=== PATIENT | female | born 2000 | race Caucasian/White ===

== ENCOUNTER 2022-08-09 12:44 | Emergency (ER) | payer MEDICAID, SELFPAY ==
[2022-08-09 12:59] VITALS: BP 140/84; PULSE 82; RESP 16; TEMP 37.6; O2SAT 100; BMI 19.5
--- NOTE | 2022-08-09 13:15 | ED.NURSE ---
Patient had large green emesis. MD notified. Order for fluids and zofran.
--- OUTSIDE RECORDS SUMMARY | 2022-08-09 13:24 | XMS_ITS ---
:2000 Author Organization [facility] Address 2024 [facility] [address] [place], [place] [id number] Care Team Providers Name Role Phone karunaMibenitaation, Provider Unavailable Unavailable PROBLEMS Type Condition ICD9-CM Code [id number] Onset Condition SNOMED Code Code Dates Status Problem Claustrophobia F40.240 Active 002 Problem LORRAINE (generalized F41.1 Active 218 81399 anxiety disorder) ALLERGIES Substance Reaction Event Type Date Status Sodium Lauryl Sulfate bad mouth sores Drug Allergy Nov, Act macarena ENCOUNTERS Encounter Location Date Diagnosis [facility] [address] [place] Jun, [place], [place] [id number] [facility] 2024 [facility] Nov, LORRAINE (generalized anxiety [address] [place], [place] disorder) F41.1 [id number] [facility] [address] [place] Jun, [place], [place] [id number] [facility] [address] [place] March, [place], [place] [id number] [facility] [address] [place] Feb, LORRAINE (g eneralized anxiety [place], [place] disorder) F41. 1 [id number] [facility] [address] [place] Feb, [place], [place] [id number] [facility] [address] [place] Feb, LORRAINE (g eneralized anxiety [place], [place] disorder) F41. 1 [id number] [facility] [address] [place] Feb, LORRAINE (g eneralized anxiety [place], [place] disorder) F41. 1 [id number] [facility] [address] [place] Nov, Claust rophobia F40.240 and [place], [place] LORRAINE (generaliz ed anxiety [id number] disorder) F41.1 IMMUNIZATIONS No Known Immunizations SOCIAL HISTORY Qualifiers Date Never Smoker REASON FOR REFERRAL FUNCTIONAL STATUS PLAN OF CARE VITAL SIGNS Height 65.25 in 2019-12-07 Weight 130.4 lbs 2019-12-07 BMI 21.53 kg/m2 2019-12-07 Temperature 98.2 degrees Fahrenheit 2019-12-07 Blood pressure systolic 110 mm Hg 2019-12-07 Blood pressure diastolic 54 mm Hg 2019-12-07 MEDICATIONS Medication Instructions Dosage Frequency Start End Duration Statu s Date Date Valium 2 MG orally once 1 tab(s) Nov, Not-Emiliano in before MRI 2019 g busPIRone HCl 5 orally 2 times a 1.5 tabs 12h Nov, day (s) Active MG day 2019 Escitalopram orally once a 1 tab(s) 24h Feb, 30 day(s) Ac tive Oxalate 5 MG day 2019 PROCEDURES No Known procedures RESULTS No Results REASON FOR VISIT [facility] Follow up, [facility] Conversion Encounter, Registry, Mailbox is full 04/19 chlamydiascreen, change of pharmacy , Registry, med check, wanting to increase medication, Refill -FYI, Followup - medication, New Patient - needs Rx for MRI Friday Insurance Providers [facility] Health Member Patient Patient Patient Patient Patient Subscriber Subscriber Subscriber Group Insurance Plan Plan Plan Plan ID Relationship Address Phone Name Date of ID Name Date of No Type Insurance Insurance Insurance Coverage to Subscriber Address Phone Name Dates BLUE [phone] BLUE self Cathryn [id number] [place] [address] [address] [address] [place] [id number]
--- OUTSIDE RECORDS SUMMARY | 2022-08-09 13:24 | XMS_ITS ---
:2001 Author Organization [facility] Address 2024 [facility] [address] [place], [place] [id number] Care Team Providers Name Role Phone karunaMibenitaation, Provider Unavailable Unavailable PROBLEMS Type Condition ICD9-CM Code [id number] Onset Condition SNOMED Code Code Dates Status Problem Claustrophobia F40.240 Active 002 Problem LORRAINE (generalized F41.1 Active 218 88426 anxiety disorder) ALLERGIES Substance Reaction Event Type Date Status Sodium Lauryl Sulfate bad mouth sores Drug Allergy Nov, Act macarena ENCOUNTERS Encounter Location Date Diagnosis [facility] [address] [place] Jun, [place], [place] [phone] [facility] 2024 [facility] Nov, LORRAINE (generalized anxiety [address] [place], [place] disorder) F41.1 [id number] [facility] [address] [place] Jun, [place], [place] [id number] [facility] [address] [place] March, [place], [place] [id number] [facility] [address] [place] Feb, LORRAINE (g eneralized anxiety [place], [place] disorder) F41. 1 [id number] [facility] [address] [place] Feb, [place], [place] [id number] [facility] [address] [place] Feb, LORRAINE (g eneralized anxiety [place], [place] disorder) F41. 1 [id number] [facility] [address] [place] Feb, LORRAINE (g eneralized anxiety [place], [place] disorder) F41. 1 [id number] [facility] [address] [place] Nov, Claust rophobia F40.240 and [place] LORRAINE (generaliz ed anxiety [id number] disorder) F41.1 IMMUNIZATIONS No Known Immunizations SOCIAL [...] procedures RESULTS No Results REASON FOR VISIT [facility] Follow [facility], Registry, Mailbox is full 04/19 chlamydiascreen, change of pharmacy , Registry, med check, wanting to increase medication, Refill -FYI, Followup - medication, New Patient - needs Rx for MRI Friday Insurance Providers [facility] Health Member Patient Patient Patient Patient Patient Subscriber Subscriber Subscriber Group Insurance Plan Plan Plan Plan ID Relationship Address Phone Name Date of ID Name Date of No Type Insurance Insurance Insurance Coverage to Subscriber Address Phone Name Dates BLUE [phone] BLUE self Cathryn [id number] [place] [address] [address] [address] [place] [phone]
--- OUTSIDE RECORDS SUMMARY | 2022-08-09 13:24 | XMS_ITS ---
:2001 Author Organization [facility] Address [address] [facility] [address] [place], [place] [id number] Care Team Providers Name Role Phone karunaMibenitaation, Provider Unavailable Unavailable PROBLEMS Type Condition ICD9-CM Code [id number] Onset Condition SNOMED Code Code Dates Status Problem Claustrophobia F40.240 Active 002 Problem LORRAINE (generalized F41.1 Active 218 52767 anxiety disorder) ALLERGIES Substance Reaction Event Type Date Status Sodium Lauryl Sulfate bad mouth sores Drug Allergy Nov, Act macarena ENCOUNTERS Encounter Location Date Diagnosis [facility] [address] [place] Jun, [place], [place] [id number] [facility] 2024 [facility] Nov, LORRAINE (generalized anxiety [address] [place], [place] disorder) F41.1 [id number] [facility] [address] [place] Jun, [place], [place] [id number] [facility] [address] [place] March, [place], [place] [id number] [facility] [address] [place] Feb, LORRAINE (g eneralized anxiety [place], [place] disorder) F41. 1 [id number] [facility] [address] [place] Feb, [place], [place] [id number] [facility] [address] [place] Feb, LORRAINE (g eneralized anxiety [place], [place] disorder) F41. 1 [id number] [facility] [address] [place] Feb, LORRAINE (g eneralized anxiety [place], [place] disorder) F41. 1 [id number] [facility] [address] [place] Nov, Claust rophobia F40.240 and [place], [place] LORRAINE (generaliz ed anxiety [id number] disorder) F41.1 IMMUNIZATIONS No Known Immunizations SOCIAL [...] procedures RESULTS No Results REASON FOR VISIT [facility] Follow up, [facility] Conversion Encounter, Registry, Mailbox is full 04/19 chlamydiascreen, change of pharmacy , Registry, med check, wanting to increase medication, Refill -FYI, Followup - medication, New Patient - needs Rx for MRI Friday Insurance Providers [facility] Health Member Patient Patient Patient Patient Patient Subscriber Subscriber Subscriber Group Insurance Plan Plan Plan Plan ID Relationship Address Phone Name Date of ID Name Date of No Type Insurance Insurance Insurance Coverage to Subscriber Address Phone Name Dates BLUE [phone] BLUE self Cathryn [id number] [place] [address] [address] [place] [phone]
--- NOTE | 2022-08-09 13:31 | ED_ITS ---
HPI - General Adult General Chief complaint: Abdominal Pain Stated complaint: poss miscarriage Time Seen by Provider: 08/09/22 12:45 Source: patient Mode of arrival: ambulatory Limitations: no limitations History of Present Illness HPI narrative: 21-year-old female coming in today with nausea and vomiting. Patient states that she is undergoing opioid withdrawal. States that she last used opioids about 50 hours ago. She has been crushing pills and smoking them. She states that she was seen at [facility] and prescribed Suboxone, today is her 2nd day. However she feels very nauseated and she went to see her primary care provider who recommended she come to the ER for IV fluids and medication. Patient is also concerned because she did not get her period this month she states that she took a home test a few days ago and was positive however more recent 1 yesterday was negative. She still has not gotten her. She is about 1 week late and she is not quite sure whether she is or not. She is sexually active. She feels jittery, nauseated, achy from head to toe, anxious. She denies blurry vision or changes in her hearing. No focal neurologic deficits. No fevers. Related Data Home Medications Medication Instructions Recorded Confirmed buprenorphine 4 mg-naloxone 1 mg 1 film sublingual QID 08/09/22 08/09/22 sublingual film (Suboxone) clonazepam 1 mg tablet 1 mg PO DAILY 08/09/22 08/09/22 trazodone 50 mg tablet 50 mg PO DAILY 08/09/22 08/09/22 Previous Rx's Medication Instructions Recorded ondansetron 4 mg disintegrating 4 mg PO TID PRN nausea and 08/09/22 tablet vomiting #15 tabs potassium chloride 10 mEq 10 meq PO BID 3 days #6 caps 08/09/22 capsule,extended release Allergies Allergy/AdvReac Type Severity Reaction Status Date / Time fluoxetine Allergy Unknown Verified 08/09/22 13:08 Review of Systems Status of ROS: Reports: 10 or more systems reviewed and unremarkable except as noted in History and below PFSH PFS Social History Smoking Status: Unknown if ever smoked Do you use any of these nicotine containing products: E-Cigarettes Second hand tobacco smoke exposure: Yes How often do you have a drink containing alcohol: 4 or more times a week How many standard drinks containing alcohol do you have on a typical day: 7 to 9 How often do you have six or more drinks on one occasion: Daily or almost daily AUDIT-C Alcohol total score: 11 Non-prescribed substance use: marijuana (any form) and opiods/painkillers service: No Exam Narrative: Exam Narrative: Well-nourished well-developed patient appears uncomfortable and anxious. Alert and oriented x3. Answers questions appropriately. Is cooperative. Patient speaks in full sentences without needing to catch her breath. HEENT: Normocephalic atraumatic. Pupils are equally round reactive to light. Extraocular muscles are intact. Conjunctivae are moist without any icterus noted. Moist mucous membranes. Cardiovascular: Heart is regular rate and rhythm S1 and S2 are present without any murmurs. Lungs: Clear to auscultation bilaterally no wheezes rhonchi or rales are appreciated. Patient takes deep breaths without any discomfort. Abdomen: Soft and nontender nondistended with normal bowel sounds. Skin: Well perfused. Const: Vital Signs, click to edit/add: Vital Signs - 24 hr 08/09/22 12:59 08/09/22 14:26 08/09/22 14:30 Temperature 99.7 F H 99.0 F Pulse Rate [Pulse Oximeter] 82 61 72 Respiratory Rate 16 16 16 Blood Pressure [Le ft Upper Arm] 140/84 H 133/82 124/86 Pulse Oximetry 100 99 99 Oxygen Delivery Me thod Room Air Room Air Room Air 08/09/22 15:00 08/09/22 15:30 Temperature Pulse Rate [Pulse Oximeter] Respiratory Rate Blood Pressure [Le ft Upper Arm] 124/98 H 125/76 Pulse Oximetry Oxygen Delivery Me thod Room Air Room Air Course Course Hospital Course: IV was started patient received a L of normal saline and IV Zofran. Just prior to starting the IV she did have an episode of emesis. She was having burning discomfort in her abdomen and requested a GI cocktail which was given and her symptoms did resolve. She received another L of normal saline for a total of 2 L and another dose of Zofran. She also requested muscle relaxer for achiness and sore muscles, Flexeril 10 mg p.o. was given. Labs showed hypokalemia-IV potassium was given during her stay. She took another dose of Suboxone in the afternoon, 4 mg sublingual. She stated that her cravings are very well controlled. Vital Signs Vital signs: Initial Vital Signs Temperature 99.7 F H 08/09/22 12:59 Temperature Source Temporal Artery Scan 08/09/22 12:59 Pulse Rate 82 08/09/22 12:59 Pulse Rhythm 08/09/22 12:59 Pulse Strength 3+ Normal 08/09/22 12:59 Respiratory Rate 16 08/09/22 12:59 Blood Pressure 140/84 H 08/09/22 12:59 Blood Pressure Mean 102 08/09/22 12:59 Blood Pressure Position Supine 08/09/22 12:59 Pulse Oximetry 100 08/09/22 12:59 Oxygen Delivery Method 08/09/22 12:59 Vital Signs Temperature 99.7 F H 08/09/22 12:59 Pulse Rate 82 08/09/22 12:59 Respiratory Rate 16 08/09/22 12:59 Blood Pressure 140/84 H 08/09/22 12:59 Pulse Oximetry 100 08/09/22 12:59 Oxygen Delivery Method 08/09/22 12:59 Temperature 99.0 F 08/09/22 14:26 Pulse Rate 72 08/09/22 14:30 Respiratory Rate 16 08/09/22 14:30 Blood Pressure 125/76 08/09/22 15:30 Pulse Oximetry 99 08/09/22 14:30 Oxygen Delivery Method 08/09/22 15:30 Medical Decision Making MDM Narrative Medical decision making narrative: 21-year-old female in opioid withdrawal on day 2 of Suboxone. test negative. Patient's menses is about 5 days late. Patient will be discharged home with [facility]. Continue Suboxone as prescribed. We will also send her home with 3 days of oral potassium replacement. Follow-up as scheduled. Lab Data Lab results reviewed: Yes I reviewed the patient's lab results Labs: Lab Results 08/09/22 08/09/22 08/09/22 Range/Units 13:57 14:50 14:50 WBC 13.21 H (4.50-11.00) K/uL RBC 5.19 (4.00-5.20) m/uL Hgb 15.2 (12.0-16.0) gm/dL Hct 44.1 (33.0-51.0) % MCV 85 (80-100) fL MCH 29 (26-34) pg MCHC 35 (32-36) gm/dL RDW Coeff of Allan 12.0 (11.5-15.5) % Plt Count 384 (140-440) K/uL Neut % (Auto) 86.4 H (42.0-72.0) % Lymph % (Auto) 7.8 L (20-44) % [place] % (Auto) 5.5 (0.0-11.0) % Eos % (Auto) 0.0 (0.0-7.0) % Baso % (Auto) 0.2 (0.0-3.0) % Neut # (Auto) 11.40 H (1.7-7.0) K/uL Lymph # (Auto) 1.00 (0.90-2.90) K/uL [place] # (Auto) 0.70 (0.00-0.90) K/UL Eos # (Auto) 0.00 (0.00-0.50) K/uL Baso # (Auto) 0.00 (0.00-0.30) K/uL Abs Immat Gran (auto) 0.01 (0.00-0.30) K/uL Sodium 139 (135-149) mmol/L Potassium 3.0 L (3.6-5.1) mmol/L Chloride 97 (96-114) mmol/L Carbon Dioxide 24 (20-32) mmol/L BUN 10 (5-24) mg/dL Creatinine 0.6 (0.5-1.5) mg/dL Estimated Creat Clear 129.59 Estimated GFR 132 ml/min Glucose 117 H (60-115) mg/dL Calcium 10.5 (8.4-10.6) mg/dL Magnesium 1.8 (1.5-2.6) mg/dL Total Bilirubin 0.6 (0.1-1.5) mg/dL Direct Bilirubin 0.2 (0.0-0.5) mg/dL AST 20 (12-35) U/L ALT 14 (4-35) U/L Alkaline Phosphatase 97 (40-150) U/L Total Protein 9.3 H (6.0-8.3) g/dL Albumin 5.6 H (3.3-5.0) g/dL Lipase 167 (23-300) U/L HCG, Qual Negative (Negative) Discharge Plan Discharge Clinical Impression: Opioid withdrawal, Hypokalemia Patient Disposition: Home, Self-Care Condition: Improved Additional Instructions: Follow-up as scheduled. Take Zofran as needed for nausea and vomiting. Recommend replacing your potassium twice a day for the next 3 days. Prescriptions: New ondansetron 4 mg tablet,disintegrating 4 mg PO TID PRN (Reason: nausea and vomiting) Qty: 15 0RF potassium chloride 10 mEq capsule, extended release 10 meq PO BID 3 Days Qty: 6 0RF No Action buprenorphine-naloxone [Suboxone] 4-1 mg film 1 film sublingual QID Label Comments: TAKE 1/2 TO 1 FILM FOUR TIMES DAILY FOR DAY 1 THEN 1 TO 2 FILMS TWICE DAILY DAY 2-4 trazodone 50 mg tablet 50 mg PO DAILY clonazepam 1 mg tablet 1 mg PO DAILY Follow Up/Referrals: Emiliano Zuniga PA-C [Primary Care Provider] - [facility]
[2022-08-09] MEDS: 0.9 % SODIUM CHLORIDE 1000 ml 1,000 ML IV ×2 (13:32→14:33)
[2022-08-09] MEDS: ONDANSETRON 2 MG/ML inj 4 MG IVP ×2 (13:32→14:43)
--- NOTE | 2022-08-09 13:42 | ED.NURSE ---
Patient requesting something for her acidic stomach MD notified. Patient stated [facility] so [facility] than [facility]. I went there by ambulance this morning and it was going to be a 5 hour wait so i left and came here.
[2022-08-09] MEDS: SUCRALFATE 1 GM TABLET PO (13:54)
[2022-08-09 14:02] LABS: HCG Qualitative* Negative (Negative)
--- NOTE | 2022-08-09 14:02 | ED.NURSE ---
requested Juice and crackers. Okay by Dr. Cohen to allow patient to have this.
--- NOTE | 2022-08-09 14:25 | ED.NURSE ---
Patient asking if she can have a film of subboxone. Okay per Dr. Cohen to have 1 4mg film of her own medication. Patient took this.
[2022-08-09 14:26] VITALS: BP 133/82; PULSE 61; RESP 16; TEMP 37.2; O2SAT 99
[2022-08-09 14:30] VITALS: BP 124/86; PULSE 72; RESP 16; O2SAT 99
[2022-08-09] MEDS: GI COCKTAIL (VISC LIDO/ANTACID) 30 ML PO (14:43)
[2022-08-09 14:57] LABS: Basophils Percent Auto 0.2 % (0.0-3.0); Hematocrit 44.1 % (33.0-51.0); Hemoglobin* 15.2 gm/dL (12.0-16.0); Immature Granulocytes Abs Auto 0.01 K/uL (0.00-0.30); Lymphocytes Percent Auto 7.8 % (20-44); Mean Corpuscular HGB Conc 35 gm/dL (32-36); Mean Corpuscular Hemoglobin 29 pg (26-34); Mean Corpuscular Volume 85 fL (80-100); Monocytes Percent Auto 5.5 % (0.0-11.0); Neutrophils Percent Auto 86.4 % (42.0-72.0); Platelet Count* 384 K/uL (140-440); Red Blood Count 5.19 m/uL (4.00-5.20); White Blood Count* 13.21 K/uL (4.50-11.00)
[2022-08-09 15:00] VITALS: BP 124/98
[2022-08-09 15:06] LABS: Slide Review Reflex No
[2022-08-09 15:11] LABS: Albumin* 5.6 g/dL (3.3-5.0)
[2022-08-09 15:12] LABS: Chloride* 97 mmol/L (96-114); Sodium* 139 mmol/L (135-149)
[2022-08-09 15:14] LABS: Aspartate Amino Transferase* 20 U/L (12-35); Bilirubin Direct* 0.2 mg/dL (0.0-0.5); Bilirubin Total* 0.6 mg/dL (0.1-1.5); Carbon Dioxide* 24 mmol/L (20-32); Creatinine* 0.6 mg/dL (0.5-1.5); Est. Creatinine Clearance* 129.59; Estimated Glomerular Filt Rate 132 ml/min; Total Protein* 9.3 g/dL (6.0-8.3)
[2022-08-09 15:15] LABS: Alanine Aminotransferase* 14 U/L (4-35); Alkaline Phosphatase* 97 U/L (40-150); Blood Urea Nitrogen* 10 mg/dL (5-24); Calcium* 10.5 mg/dL (8.4-10.6); Glucose* 117 mg/dL (60-115); Lipase* 167 U/L (23-300)
[2022-08-09 15:30] VITALS: BP 125/76
[2022-08-09 15:39] LABS: Magnesium* 1.8 mg/dL (1.5-2.6)
[2022-08-09] MEDS: POTASSIUM CHLORIDE 10 MEQ/100 ML PIGGYBACK 100 MEQ IVPB (15:47)
--- NOTE | 2022-08-09 15:55 | ED.NURSE ---
Pt c/o hip pain and requesting trazadone and muscle relaxant. MD informed. MD encourages pt to take home trazadone medication once home upon d/c. Cyclobenzaprine administered, per eMAR.
[2022-08-09] MEDS: CYCLOBENZAPRINE HCL 10 MG TABLET PO (15:58)
--- NOTE | 2022-08-09 16:10 | ED.NURSE ---
Pt requesting more apple and orange juice. Previously okayed with . Brought to pt. Pt c/o burning from orange juice and requesting GI cocktail. informed and declines d/t pt already receiving dose of GI cocktail earlier today at [facility] and one here in ER. Pt updated. Pt stating IV potassium infusion stinging. Switched to NS piggyback and potassium temporarily paused. Pt states stinging sensation improving. Potassium restarted over two hours and pt urged to press call light if stinging returns.
[2022-08-09 17:46] VITALS: BP 128/76; PULSE 66; RESP 18; TEMP 37.1; O2SAT 99
--- NOTE | 2022-08-09 18:07 | ED.NURSE ---
Pt d/c to home with a ride from her sister.
== END 2022-08-09 18:08 | disposition home or self-care (01) ==
PROVIDERS: Emergency Provider Family Medicine; PCP Physician Assistant Medical
DX: E87.6 Hypokalemia (principal); F11.23 Opioid dependence with withdrawal
CPT/HCPCS: 36415; 80048; 80076; 83690; 83735; 84703; 85025; 96365; 96375; 96376; 99284; 99285; A9270; J2405; J3480; J7030

== ENCOUNTER 2025-02-07 15:39 | Outpatient (CLI) | payer MEDICAID, SELFPAY ==
[2025-02-08 00:05] LABS: Chlamydia DNA Amplified* NOT DETECTED (No Detected); GC DNA Amplified* NOT DETECTED (No Detected)
== END 2025-02-07 15:40 | disposition home or self-care (01) ==
LOC: LKVREF 15:41
PROVIDERS: Visit Provider Nurse Practitioner Family
DX: N89.8 Other specified noninflammatory disorders of vagina (principal); R30.0 Dysuria; Z11.3 Encounter for screening for infections with a predominantly sexual mode of transmission
CPT/HCPCS: 87086; 87491; 87591

== ENCOUNTER 2025-06-03 14:57 | Emergency (ER) | payer MEDICAID, SELFPAY ==
--- OUTSIDE RECORDS SUMMARY | 2022-09-10 08:01 | XMS_ITS | Continuity of Care Document ---
Author Organization [facility] Address [address] [address] [place] [address] Phone Care Team Providers Care Biometrics Technician Name Role Phone Cole Weber CRNA Unavailable Unavailable Allergies, Adverse Reactions, Alerts Substance Reaction Status Criticality No Known Allergies Resolved No Inform ation Medications Medication Instructions Dosage Effective Dates (start - stop) Status Comments ondansetron HCl 4 mg tablet take 1 Tablet by ORAL route every 8 hours as needed for nausea for Agitation 4 MG - Active Procedures Procedure Date Ugi Endo; W/bx 1/mx Level Iv-surg Path Gross/micro Advance Directives Directive Yes / No Effective Date File Name No Information Encounters Encounter Description Practice Location Reason(s) For Visit Diagnoses Date Provider Providers Copied on Encounter [facility], [address] [address], [place], [place], [id number], [place] tel:[phone] [facility] No Information 2 Gus Galvan. [address], [facility] [address], [place], [place], [address], [place]. tel:[phone] [facility], [address] [address], [place], [place], [address], [place] tel:[phone] [facility] GI Symptoms or Concerns (chief complaint) Esophageal dysphagiaDys phagia, unspecifiedD ysphagia, unspecified 2 No Information Referring Provider: Merari Castellon, [address] [place], [address]. tel:[phone] [facility], [address] [address], [place], [place], [address], [place] tel:[phone] [facility] No Information Aram Negrete. [address], [place], [place], [address], [place]. tel:[phone] Family History Family Member Type Diagnosis Age At Onset No Information Immunizations Vaccine Date Status Comments SARS-COV-2 (COVID-19) vaccin e, mRNA, spike protein, LNP, preservative free, 100 mcg/0.5mL dose or 50 mcg/0.25mL dose administered Note: [facility] bi -directional interface ; Source: Other Registry SARS-COV-2 (COVID-19) vaccin e, mRNA, spike protein, LNP, preservative free, 100 mcg/0.5mL dose or 50 mcg/0.25mL dose administered Note: [facility] bi -directional interface ; Source: Other Registry tetanus toxoid, reduced diphtheria toxoid, and acellular pertussis vaccine, adsorbed administered Note: [facility] b i-directional interface ; Source: Other Registry Human Papillomavirus 9-afsaneh t vaccine administered Note: [facility] bi-direct ional interface ; Source: Other Registry Human Papillomavirus 9-afsaneh t vaccine administered Note: [facility] bi-direct ional interface ; Source: Other Registry Human Papillomavirus 9-afsaneh t vaccine administered Note: [facility] bi-direct ional interface ; Source: Other Registry tetanus toxoid, reduced diphtheria toxoid, and acellular pertussis vaccine, adsorbed administered Note: [facility] b i-directional interface ; Source: Other Registry Havrix pediatric administered Note: [facility] bi-directional interface ; Source: Other Registry meningococcal oligosaccharid e (groups A, C, Y and W-135) diphtheria toxoid conjugate vaccine (MCV4O) administered Note: [facility] bi-direct ional interface ; Source: Other Registry varicella virus vaccine administered Note : [facility] bi-directional interface ; Source: Other Registry measles, mumps and rubella v irus vaccine administered Note: [facility] bi-direct ional interface ; Source: Other Registry diphtheria, tetanus toxoids and acellular pertussis vaccine administered Note: [facility] b i-directional interface ; Source: Other Registry influenza virus vaccine, unspecified formulation administered Note: [facility] bi-di rectional interface ; Source: Other Registry measles, mumps and rubella v irus vaccine administered Note: [facility] bi-direct ional interface ; Source: Other Registry diphtheria, tetanus toxoids and acellular pertussis vaccine administered Note: [facility] b i-directional interface ; Source: Other Registry varicella virus vaccine administered Note : [facility] bi-directional interface ; Source: Other Registry poliovirus vaccine, inactivated administe red Note: [facility] bi- directional interface ; Source: Other Registry Haemophilus influenzae type b conjugate and Hepatitis B vaccine administered Note: [facility] bi- directional interface ; Source: Other Registry Influenza, seasonal, injectable administe red Note: [facility] bi- directional interface ; Source: Other Registry Haemophilus influenzae type b conjugate and Hepatitis B vaccine administered Note: [facility] bi- directional interface ; Source: Other Registry poliovirus vaccine, inactivated administe red Note: [facility] bi- directional interface ; Source: Other Registry diphtheria, tetanus toxoids and acellular pertussis vaccine administered Note: [facility] b i-directional interface ; Source: Other Registry Pneumovax administered Note: [facility] bi-d irectional interface ; Source: Other Registry Haemophilus influenzae type b conjugate and Hepatitis B vaccine administered Note: [facility] bi- directional interface ; Source: Other Registry poliovirus vaccine, inactivated administe red Note: [facility] bi- directional interface ; Source: Other Registry diphtheria, tetanus toxoids and acellular pertussis vaccine administered Note: [facility] b i-directional interface ; Source: Other Registry Pneumovax administered Note: [facility] bi-d irectional interface ; Source: Other Registry Payers Payer name Insurance type Covered republican ID Authorzhenenid paz(s) Home MURGUIA [id number] Social History Type Description Quantity Date Captured Comments Sex Female Smoking Status No Information Chief Complaint And Reason For Visit No Information Reason For Referral Reason For Referral No Information History Of Present Illness Encounter Date Complaint History Of Prese nt Illness GI Symptoms or Concerns Functional Status Date Functional Assessmen t No Information Instructions Date Instruction Additional Infor mation No Information Assessments Type Assessment Date No Information Patient Care Teams Name Effective Dates (start - stop) Status Members No Information
--- OUTSIDE RECORDS SUMMARY | 2022-09-10 08:01 | XMS_ITS | Continuity of Care Document ---
Author Organization [facility] Address [address] [address] [place] [address] Phone Care Team Providers Care Contract Sheltered Workshop Supervisor Name Role Phone Cole Weber CRNA Unavailable [...] Diagnoses Date Provider Providers Copied on Encounter [facility], [address] [address], [place], [place], [id number], [place] tel:[phone] [facility] No Information 2 Gus Galvan. [address] [facility], [facility] [address], [place], [place], [id number], [place]. tel:[phone] [facility], [address] [address], [place], [place], [id number], [place] tel:[phone] [facility] GI Symptoms or Concerns (chief complaint) Esophageal dysphagiaDys phagia, unspecifiedD ysphagia, unspecified 2 No Information Referring Provider: Merari Castellon, [address] [place], [address]. tel:[phone] [facility], [address] [address], [place], [place], [address], [place] tel:[phone] [facility] No Information Aram Negrete. [address] [facility], [address], [place], [place], [id number], [place]. tel:[phone] Family History Family Member Type Diagnosis Age [...] Covered republican ID Authorzhenenid paz(s) Home MURGUIA [id number] Social History Type Description Quantity Date Captured [...]
--- OUTSIDE RECORDS SUMMARY | 2025-06-03 14:48 | XMS_ITS | Encounter Summary ---
Author Organization [place] Address [address] [place] [address] Care Team Providers Care Applique Cutter Name Role Phone No Ref-Primary, Physician Primary Care Provider Encounter Details Date Type Department Care Team ([facility] st Contact Info) Description 06/03/2025 2:48 PM CDT - 06/03/2025 2:53 PM CDT Emergency [facility] Emergency Dept [address] [place] [address] Discharge Disposition: Left Without Being Seen Social History Tobacco Use Types Packs/Day Years Used Date Smoking Tobacco: Every Day Cigarettes Vaping Device Smokeless Tobacco: Never Adolescent Education Answer Date Record ed Getting School Help Needed Not on file 08/09 Comments No Sex and Gender Information Value Date Recorded Sex Assigned at Not on file Legal Sex Female 10:35 AM CDT Gender Identity Not on file Sexual Orientation Not on file documented as of this encounter Medications at Time of Discharge baclofen (LIORESAL) 10 MG tablet Take 10 mg by mouth 3 times daily as needed 01/03/2023 buprenorphine (SUBUTEX) [address] tablet [address] 2 TABLETS UNDER THE TONGUE TWICE DAILY 01/03/2023 gabapentin (NEURONTIN) 300 MG capsule TAKE 1 CAPSULE BY MOUTH THREE TIMES DAILY NEEDED FOR ANXIETY 01/03/2023 mirtazapine (REMERON) 15 MG tablet Take 15 mg by mouth At Bedtime 01/03/2023 documented as of this encounter ED Notes * Nely De Leon RN - 06/03/2025 2:47 PM CDT Patient called x 3 for triage. [facility] documented in this encounter Plan of Treatment Not on file documented as of this encounter Visit Diagnoses Not on filedocumented in this encounter Care Teams Applique Cutter Relationship Specialty Start Date End Date No Ref-Primary, Physician PCP - General 01/09/23 documented as of this encounter
--- OUTSIDE RECORDS SUMMARY | 2025-06-03 14:59 | XMS_ITS | Clinical Summary ---
Author Organization [place] Address [address] [place] [address] Care Team Providers Care Pilot Teacher Name Role Phone No Ref-Primary, Physician Primary Care Provider Allergies Active Allergy Reactions Criticality Noted Date Comments Fluoxetine Other (See Comments) 06/10/2022 Mouth sores Sodium Lauryl Sulfate Anaphylaxis High 11/02/2019 Mouth ulcers Medications mirtazapine (REMERON) 15 MG tablet Take 15 mg by mouth At Bedtime 01/03/2023 Active gabapentin (NEURONTIN) 300 MG capsule TAKE 1 CAPSULE BY MOUTH THREE TIMES DAILY NEEDED FOR ANXIETY 01/03/2023 Active baclofen (LIORESAL) 10 MG tablet Take 10 mg by mouth 3 times daily as needed 01/03/2023 Active buprenorphine (SUBUTEX) 2 MG SUBL sublingual tablet PLACE 2 TABLETS UNDER THE TONGUE TWICE DAILY 01/03/2023 Active Active Problems Problem Noted Date Diagnosed Date Hyperopia, bilateral 01/30/2023 Visual disturbance 01/30/2023 Anisometropia 09/20/2021 Hyperopic astigmatism of left eye 09/20/2021 Refractive amblyopia of left eye 09/20/2021 Chronic midline thoracic back pain 05/19/2021 Generalized anxiety disorder 02/22/2021 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 02/22/2021 Panic attacks 02/22/2021 Polyarthralgia 02/22/2021 Encounters Date Type Department Care Team Description 06/03/2025 2:48 PM CDT - 06/03/2025 2:53 PM CDT Emergency [facility] Emergency Dept [address] [place] [address] Discharge Disposition: Left Without Being Seen 06/03/2025 Travel 05/11/2025 Refill [facility] [address] [place] [address] Miliva Horvath PA-C Medication Refill from Last 3 Months Social History Tobacco Use Types Packs/Day Years Used Date Smoking Tobacco: Every Day Cigarettes Vaping Device Smokeless Tobacco: Never Tobacco Cessation:Ready to Q uit: Not Asked; Counseling Given: Not Answered Adolescent Education Answer Date Record ed Getting School Help Needed Not on file 08/09 Comments No Sex and Gender Information Value Date Recorded Sex Assigned at Not on file Legal Sex Female 10:35 AM CDT Gender Identity Not on file Sexual Orientation Not on file Last Filed Vital Signs Vital Sign Reading Time Taken Comments Blood Pressure 131/92 03/01/2025 11:07 AM CDT Pulse 92 03/01/2025 11:07 AM CDT Temperature 36.4 C (97.5 F) 03/01/2025 11:04 AM CDT Respiratory Rate 16 03/01/2025 11:04 AM CDT Oxygen Saturation 100% 03/01/2025 11:07 AM CDT Inhaled Oxygen Concentration - - Weight 64.9 kg (143 lb) 03/01/2025 11:04 AM CDT Height 167.6 cm (5' 6) 11/02/2019 5:56 PM PUBLIC HEALTH SERVICE OFFICER Body Mass Index 23.08 11/02/2019 5:56 PM PUBLIC HEALTH SERVICE OFFICER Plan of Treatment Health Maintenance Due Date Last Done Comments ADVANCE CARE PLANNING 2001 ANNUAL REVIEW OF HM ORDERS 2001 DEPRESSION ACTION PLAN 2001 NICOTINE/TOBACCO CESSATION COUNSELING Q 1 YR 2001 PHQ-9 2001 PNEUMOCOCCAL VACCINE: PEDIATRICS (0 to 5 YEARS) AND AT-RISK PATIENTS (6 to 49 YEARS) (1 of 1 - PPSV23) 2007 04/22/2003, 02/05/2002, 2001 MENINGITIS B VACCINE (1 of 2 - Standard) 2017 COVID-19 VACCINE ( - season) 2024 09/14/2021, 08/17/2021 INFLUENZA VACCINE (#1) 2025 , 10/12/2023, 09/30/2022, Additional history exists YEARLY PREVENTIVE VISIT 01/06/2026 01/06/20, 01/15/2023, 02/22/2021 PAP 01/15/2026 01/15/2023 CHLAMYDIA SCREENING 04/14/2026 04/14/2025, 02/28/2025, 03/18/2023, Additional history exists DTAP/TDAP/TD VACCINE (8 - Td or Tdap) 02/22/2031 02/22/2021, 07/25/2014, 06/30/2006, Additional history exists ZOSTER VACCINE (1 of 2) 2051 MENINGITIS VACCINE Aged Out 07/25/2014 No longer eligible based on patient's age to complete this topic HPV VACCINE Completed 02/22/2021, 09/17, 07/03/2017 HEPATITIS B VACCINE Completed 04/15/2023, 10/26/2002, 02/05/2002, Additional history exists HEPATITIS C SCREENING Completed 05/23/2023 HIV SCREENING Completed 01/06/2024 Procedures Procedure Name Priority Date/Time Associated Diagnosis Comments CHLAMYDIA TRACHOMATIS PCR Routine 01/09/2023 6:16 PM PUBLIC HEALTH SERVICE OFFICER Screen for STD (sexually transmitted disease) from Last 3 Months or Most Recently Relevant to Health Maintenance Results * Chlamydia trachomatis PCR - Clinic Collect (01/09/2023 6:16 PM PUBLIC HEALTH SERVICE OFFICER) Chlamydia trachomatis Negative Negative 01/11/2023 11:29 AM PUBLIC HEALTH SERVICE OFFICER [facility] Comment:A negative result by community health representative mediated amplification does not preclude the presence of C. trachomatis infection because results are dependent on proper and adequate collection, absence of inhibitors and sufficient rRNA to be detected. Urine VOIDED URINE SPECIMEN / Unknown Non-blood Collection / Unknown 01/09/2023 6:16 PM PUBLIC HEALTH SERVICE OFFICER 01/09/2023 6:28 PM PUBLIC HEALTH SERVICE OFFICER us Catherine Garzon PA-C LAB - MICRO GENERAL ORDERABLES Final Result [facility] Inf. Diseases Diag. Lab [address] [facility], [address] [place] [address], [facility] [phone] from Last 3 Months or Most Recently Relevant to Health Maintenance [place] [address] [place] [address] Care Teams Pilot Teacher Relationship Specialty Start Date End Date No Ref-Primary, Physician PCP - General 01/09/23
--- OUTSIDE RECORDS SUMMARY | 2025-06-03 14:59 | XMS_ITS | Clinical Summary ---
Author Organization [facility] Address [address], [place] [address] Care Team Providers Care Route Returner Name Role Phone No Primary/Referring, Kjy Primary Care Provider Unavailable Source Comments You are receiving this document as you are listed as the primary care provider,follow-up provider, or the patient has been referred to you for consultation.This is in compliance with the Medicare and[facility] Hospital[facility] EHR Incentive Program,which states Providers who transition their patient to another setting of careor provider of care or refers their patient to another provider of care shouldprovide summary care record for each transition of care or referral. [facility] Allergies Active Allergy Reactions Criticality Noted Date Comments Sodium Lauryl Sulfate Other, see comments 03/26 Mouth sores Medications gabapentin (NEURONTIN) 300 MG capsule Take 1 Capsule (300 mg) by mouth three times a day. 01/07/2025 Active ZAFEMY 150-35 MCG/24HR patch Apply 1 Patch to skin once every week. 12/27/2024 Active QUEtiapine (SEROQUEL) 50 MG tablet Take 1 Tablet (50 mg) by mouth. Active valACYclovir (VALTREX) 1 g tablet Take 2 tablets (2gm) by mouth daily for 1 day when having cold sore outbreak 01/06/2025 Active baclofen (LIORESAL) 10 MG tablet Take 1 Tablet (10 mg) by mouth three times a day for 10 days. 30 Tablet 02/18/2025 Active Active Problems No known active problems Social History Tobacco Use Types Packs/Day Years Used Date Smoking Tobacco: Never Assessed Comments No Sex and Gender Information Value Date Recorded Sex Assigned at Not on file Legal Sex Female 5:26 PM ELECTROMECHANICAL TECHNOLOGIST Gender Identity Not on file Sexual Orientation Not on file Last Filed Vital Signs Vital Sign Reading Time Taken Comments Blood Pressure 118/86 12/28/2022 7:57 AM ELECTROMECHANICAL TECHNOLOGIST Pulse 80 12/28/2022 7:57 AM ELECTROMECHANICAL TECHNOLOGIST Temperature 36.7 C (98 F) 02/23/2025 4:13 PM CDT Respiratory Rate 18 12/28/2022 7:57 AM ELECTROMECHANICAL TECHNOLOGIST Oxygen Saturation 99% 12/28/2022 7:57 AM ELECTROMECHANICAL TECHNOLOGIST Inhaled Oxygen Concentration - - Weight - - Height - - Body Mass Index - - Plan of Treatment Health Maintenance Due Date Last Done Comments Cervical Cancer Screening Due 2001 Hep C Screening (Preventive Services) 2001 MenB Immunization Discussion 2001 HepA Vaccine (2 of 2 - 2-dose series) 01/22/2015 07/25/2014 Adult Preventive Visit 2019 HepB Vaccine (1) 2020 COVID-19 Vaccine ( season) 2024 09/14/2021, 08/17/2021 Chlamydia 01/06/2025 01/06/2024, 12/19, 05/23/2023, Additional history exists Influenza Vaccine (#1) 2025 , 10/12/2023, 09/30/2022, Additional history exists DTaP/Tdap/Td Vaccine (8 - Tdap) 02/22/2031 02/22/2021, 07/25/2014, 06/30/2006, Additional history exists Zoster/Shingles Vaccine (1 of 2) 2051 Hib Vaccine Completed 10/26/2002, 01/16, 2001 Pneumococcal Vaccine Aged Out 04/22/2003, 02/05/2002, 2001 No longer eligible based on patient's age to complete this topic IPV (Polio) Vaccine Completed 06/30/2006, 10/26/2002, 02/05/2002, Additional history exists MCV4 Vaccine Aged Out 07/25/2014 No longer eligi ble based on patient's age to complete this topic HPV Vaccine Completed 02/22/2021, 09/17, 07/03/2017 HIV Screening (Preventive Services) Completed 01/06/[address] [place] [address] [place] [address] Care Teams Route Returner Relationship Specialty Start Date End Date No Primary/Referring, Danielle PCP - General 12/28/22
--- OUTSIDE RECORDS SUMMARY | 2025-06-03 14:59 | XMS_ITS | Encounter Summary ---
Author Organization [place] Address [facility] [place] [address] Care Team Providers Care Wind Projects Supervisor Name Role Phone No Ref-Primary, Physician Primary Care Provider Reason for Visit * Reason Comments Medication Refill Encounter Details Date Type Department Care Team ([facility] st Contact Info) Description 05/11/2025 Refill [facility] [place] [id number] [place] [address] Milvia Horvath, PAJenniferC [address] [place] [address] Medication Refill Social History Tobacco Use Types Packs/Day Years [...] on file documented as of this encounter Plan of Treatment Not on file documented as of this encounter Visit Diagnoses Diagnosis Benign paroxysmal positional vertigo due to bilateral vestibular disorder documented in this encounter Care Teams Wind Projects Supervisor Relationship Specialty Start Date End Date No Ref-Primary, Physician PCP - General 01/09/23 documented as of this encounter
--- OUTSIDE RECORDS SUMMARY | 2025-06-03 14:59 | XMS_ITS | Encounter Summary ---
Author Organization [facility] Address [address] [place] [address] Care Team Providers Care Recovery Operator Helper Name Role Phone No Ref-Primary, Physician Primary Care Provider Encounter Details Date Type Department Care Team (Latest Contact Info) Description 06/03/2025 Travel Social History Tobacco Use Types Packs/Day Years [...] on filedocumented in this encounter Care Teams Recovery Operator Helper Relationship Specialty Start Date End Date No Ref-Primary, Physician PCP - General 01/09/23 documented as of this encounter
--- OUTSIDE RECORDS SUMMARY | 2025-06-03 15:00 | XMS_ITS | Encounter Summary ---
Author Organization [place] Address [address] [place] [address] Care Team Providers Care Botany Technician Name Role Phone No Ref-Primary, Physician Primary Care Provider Encounter Details Date Type Department Care Team (Late st Contact Info) Description 11/02/2019 Records - [facility] Emergency Room [facility] [place] [address] Tresa Ken RN Social History Tobacco Use Types Packs/Day Years Used Date Smoking Tobacco: Never Assessed Comments Unknown Sex and Gender Information Value Date Recorded Sex Assigned at Not on file Legal Sex Female 10:35 AM CDT Gender Identity Not on file Sexual Orientation Not on file documented as of this encounter ED Notes * Tresa Ken - 11/02/2019 6:34 PM CST Did not want to wait any longer for medical screening. States that she is planning on going to [facility] for care MER * Tresa Ken - 11/02/2019 5:52 PM CST States has been feeling short of breath for the last 6 hours. Pain increases inspiration to left lower rib area. States yesterday it was the right side lower rib area that was painful. Denies fever. Productive cough with yellow/green sputum. Able to speak in full complete sentences. GCS 15. Nasal congestion and states pain has been steadily increasing. MER documented in this encounter Plan of Treatment Not on file documented as of this encounter Visit Diagnoses Not on filedocumented in this encounter Care Teams Botany Technician Relationship Specialty Start Date End Date No Ref-Primary, Physician PCP - General 01/09/23 documented as of this encounter
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
--- OUTSIDE RECORDS SUMMARY | 2025-06-03 15:00 | XMS_ITS | Patient Health Record ---
Author Organization [facility] S Address [address] [id number] Care Team Providers Care Radio Script Writer Name Role Phone SELECT, PROVIDER Primary Care Provider Unavailab le Allergies Allergen (clinical drug ingredient) Drug/Non Drug Allergy documented on EMR Reaction Allergy Type Onset Date Status Sodium Lauryl Sulfate bad mouth sores Drug Allergy Active Reason For Referral No Information Medications Medication SIG (Take, Route, Frequency, Duration) Notes Start Date End Date Status busPIRone HCl 5 MG 1.5 tabs orally 2 ti mes a day; Duration: 30 day(s) 12/07/2019 Active Escitalopram Oxalate 5 MG 1 tab(s) orall y once a day; Duration: 30 day(s) 03/13/2020 Active Valium 2 MG 1 tab(s) orally once before MRI 12/07/2019 Not-Taking Social History Tobacco Use: Social History Observation Description Date Details (start date - stop date) Never Smoker NA - NA Tobacco Status Question Answer Notes I am: never smoker Problems Problem Type SNOMED Code ICD Code Onset Dates Problem Status W/U Status Risk Notes Problem LORRAINE (generalized anxiety disorder) (F41.1) Active confirmed Problem Claustrophobia (83010916) Claustrophobia (F40.240) Active confirmed Plan Of Treatment No Information Medical (General) History Medical History History ICD Code DOFV: 12/07/2019
[2025-06-03 15:05] VITALS: BP 138/75; PULSE 88; RESP 20; TEMP 37.2; O2SAT 99; BMI 22.8
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
--- NOTE | 2025-06-03 15:24 | CRLHL7_ITS ---
For Patients: As a result of the Cures Act, medical imaging exams and procedure reports are released immediately into your electronic medical record. You may view this report before your referring provider. If you have questions, please contact your health care provider. EXAM: CT OF THE PELVIS, WITHOUT CONTRAST CLINICAL INDICATION: Severe tailbone pain following fall. Pelvic pain. COMPARISON STUDIES: 07/10/2025 right hip. TECHNICAL: Non-contrast CT of the pelvis with axial images. Sagittal oblique and coronal oblique reformatted images were created. FINDINGS: OSSEOUS STRUCTURES: No fracture, callous formation or periosteal reaction. Multiple small benign bone islands in the pelvis and proximal femurs. No evidence for chronic avascular necrosis. JOINT SPACES: Right Hip: No effusion. No joint space narrowing, hypertrophic change or subchondral cystic change. Left Hip: No effusion. No joint space narrowing, hypertrophic change or subchondral cystic change. SI Joints: No hypertrophic change or ankylosis. Lumbar Spine: Unremarkable. MUSCLES AND TENDONS: No intramuscular mass or hematoma. No muscle atrophy. No retracted tendon tear. SOFT TISSUES: No subcutaneous edema, fluid collection or hematoma. INTRAPELVIC CONTENTS: No free fluid or hematoma. No inguinal hernia. NEUROVASCULAR STRUCTURES: No abnormality of the neurovascular structures. IMPRESSION: 1. No acute findings. 2. Multiple small benign bone islands. Please note that all CT scans at this facility use dose modulation, iterative reconstruction, and/or weight-based dosing when appropriate to reduce radiation dose to as low as reasonably achievable. Dictated by Gene Daugherty MD @ 06/03/2025 3:49:53 PM (Electronically Signed)
[2025-06-03 15:48] LABS: Appearance Urine Clear (Clear)
== END 2025-06-03 16:24 | disposition home or self-care (01) ==
PROVIDERS: Emergency Provider Family Medicine
DX: S30.0XXA Contusion of lower back and pelvis, initial encounter (principal); R10.2 Pelvic and perineal pain; M53.3 Sacrococcygeal disorders, not elsewhere classified; W16.622A Jumping or diving into natural body of water striking bottom causing other injury, initial encounter
CPT/HCPCS: 51798; 72192; 81001; 99284

== ENCOUNTER 2025-07-23 16:11 | Emergency (ER) | payer MEDICAID, SELFPAY ==
--- OUTSIDE RECORDS SUMMARY | 2022-09-10 08:01 | XMS_ITS | Continuity of Care Document ---
Author Organization [facility] Address [address] [address] [place] [address] Phone Care Team Providers Care Swimming Teacher Name Role Phone Cole Weber CRNA Unavailable [...] Diagnoses Date Provider Providers Copied on Encounter [facility], [address] [address], [place], [place], [id number], [place] tel:[phone] [facility] No Information 2 Gus Galvan. [address] [facility], [facility] [address], [place], [place], [id number], [place]. tel:[phone] [facility], [address] [address], [place], [place], [address], [place] tel:[phone] [facility] GI Symptoms or Concerns (chief complaint) Esophageal dysphagiaDys phagia, unspecifiedD ysphagia, unspecified 2 No Information Referring Provider: Merari Castellon, [address] [place], [address]. tel:[phone] [facility], [address] [address], [place], [place], [address], [place] tel:[phone] [facility] No Information Aram Negrete. [address] [facility], [address], [place], [place], [id number], [place]. tel:[phone] Family History Family Member Type Diagnosis Age [...] Covered republican ID Authorzhenenid paz(s) Home MURGUIA [id number] Social History Type Description Quantity Date Captured [...]
--- OUTSIDE RECORDS SUMMARY | 2022-09-10 08:01 | XMS_ITS | Continuity of Care Document ---
Author Organization [facility] Address [address] [address] [place] [address] Phone Care Team Providers Care Radiographer Technologist Name Role Phone Cole Weber CRNA Unavailable [...] Diagnoses Date Provider Providers Copied on Encounter [facility], [address] [address], [place], [place], [address], [place] tel:[phone] [facility] No Information 2 Gus Galvan. [address] [facility], [facility] [address], [place], [place], [id number], [place]. tel:[phone] [facility], [address] [address], [place], [place], [address], [place] tel:[phone] [facility] GI Symptoms or Concerns (chief complaint) Esophageal dysphagiaDys phagia, unspecifiedD ysphagia, unspecified 2 No Information Referring Provider: Merari Castellon, [address] [place], [address]. tel:[phone] [facility], [address] [address], [place], [place], [address], [place] tel:[phone] [facility] No Information Aram Negrete. [address] [facility], [address], [place], [place], [address], [place]. tel:[phone] Family History Family Member Type Diagnosis Age [...] Registry Payers Payer name Insurance type Covered libertarian ID Authorzhenenid paz(s) Home MURGUIA [id number] Social History Type Description Quantity Date Captured [...]
--- OUTSIDE RECORDS SUMMARY | 2025-07-23 12:00 | XMS_ITS | Encounter Summary ---
Author Organization [facility] Address [address] [place] [address] Care Team Providers Care Operations Section Manager Name Role Phone No Ref-Primary, Physician Primary Care Provider Reason for Visit * Reason Comments Allergic Reaction Encounter Details Date Type Department Care Team (Late st Contact Info) Description 07/23/2025 12:00 PM CDT - 07/23/2025 2:32 PM CDT Emergency [facility] Emergency Dept [address] [place] [phone] Santo Johnson MD [address] [place] [address] [id number] Allergic reaction, initial encounter (Primary Dx) Discharge Disposition: Home or Self Care Social History Tobacco Use Types Packs/Day Years [...] on file documented as of this encounter Last Filed Vital Signs Vital Sign Reading Time Taken Comments Blood Pressure 114/91 07/23/2025 2:20 PM CDT Pulse 91 07/23/2025 2:20 PM CDT Temperature 37.1 C (98.8 F) 07/23/2025 2:20 PM CDT Respiratory Rate 18 07/23/2025 2:20 PM CDT Oxygen Saturation 100% 07/23/2025 2:20 PM CDT Inhaled Oxygen Concentration - - Weight 65.3 kg (143 lb 15.4 oz) 025 11:59 AM CDT Height 167.6 cm (5' 6) 07/23/2025 11:5 9 AM CDT Body Mass Index 23.24 07/23/2025 11:59 AM CDT documented in this encounter Discharge Instructions * Discharge Instructions* Santo Johnson MD - 07/23/2025 2:11 PM CDT Return to the ER for difficulty breathing, recurrent reaction, or any new concerns. Please follow-up with your primary care clinic to arrange formal allergy testing. * Attachments The following attachments cannot be sent through Care Everywhere. * Allergic Reaction (South African) documented in this encounter Medications at Time of Discharge baclofen (LIORESAL) 10 MG tablet Take 10 mg by mouth 3 times daily as needed 01/03/2023 buprenorphine (SUBUTEX) 2 [address] SUBL sublingual tablet PLACE 2 TABLETS UNDER THE TONGUE TWICE DAILY 01/03/2023 diphenhydrAMINE (BENADRYL) 25 MG capsule Take 1 capsule (25 mg) by mouth every 6 hours as needed for itching or allergies. 30 capsule 07/23/2025 famotidine (PEPCID) 20 MG tablet Take 1 tablet (20 mg) by mouth 2 times daily. 10 tablet 07/23/2025 gabapentin (NEURONTIN) 300 MG capsule TAKE 1 CAPSULE BY MOUTH THREE TIMES DAILY NEEDED FOR ANXIETY 01/03/2023 mirtazapine (REMERON) 15 MG tablet Take 15 mg by mouth At Bedtime 01/03/2023 predniSONE (DELTASONE) 20 MG tablet Take two tablets daily for 4 more days. 8 tablet 07/23/2025 documented as of this encounter ED Notes * Ana Paula Cunninhgam RN - 07/23/2025 2:30 PM CDT Pt ready for discharge after passing her oral challenge with apple juice and crackers. Discharge papers given and explained, pt took all her personal belongings with her at discharge. * Santo Johnson MD - 07/23/2025 12:28 PM CDT Emergency Department Note History of Present Illness Chief Complaint Allergic Reaction HPI Cathryn Li is a 24 year old female who presents to the ED for evaluation of an allergic reaction. She says she was stung by bee shortly prior to arrival. She did not use any medications but feels that her tongue and throat feel full. She is not drooling or stridorous. She does not have any urticarial rash. She denies any other new exposures such as foods or medications or cosmetic products. She has never had formal allergy testing but has had prior allergic type reactions. Past Medical History Medical History and Problem List No past medical history on file. Medications baclofen (LIORESAL) 10 MG tablet buprenorphine (SUBUTEX) 2 MG SUBL sublingual tablet diphenhydrAMINE (BENADRYL) 25 MG capsule famotidine (PEPCID) 20 MG tablet gabapentin (NEURONTIN) 300 MG capsule mirtazapine (REMERON) 15 MG tablet predniSONE (DELTASONE) 20 MG tablet Surgical History No past surgical history on file. Physical Exam Patient Vitals for the past 24 hrs: BP Temp Temp src Pulse Resp SpO2 Height Weight 07/23/25 1300 127/75 98.7 ??F (37.1 ??C) Oral 95 17 100 % -- -- 07/23/25 1236 -- -- -- 113 16 100 % -- -- 07/23/25 1216 (!) 129/91 -- -- 98 17 100 % -- -- 07/23/25 1159 (!) 145/96 97.4 ??F (36.3 ??C) Temporal 105 18 100 % 1.676 m (5' 6) 65.3 kg (143 lb 15.4 oz) Physical Exam Constitutional: General: She is not in acute distress. Appearance: Normal appearance. She is not diaphoretic. HENT: Head: Atraumatic. Mouth/Throat: Mouth: Mucous membranes are moist. Comments: Speech is normal. No drooling or stridor. No edema of the lips, tongue, uvula, or posterior oropharynx. Eyes: General: No scleral icterus. Conjunctiva/sclera: Conjunctivae normal. Cardiovascular: Rate and Rhythm: Normal rate and regular rhythm. Heart sounds: Normal heart sounds. Pulmonary: Effort: No respiratory distress. Breath sounds: Normal breath sounds. Abdominal: General: Abdomen is flat. There is no distension. Tenderness: There is no abdominal tenderness. Musculoskeletal: Cervical back: Neck supple. Right lower leg: No edema. Left lower leg: No edema. Skin: General: Skin is warm. Capillary Refill: Capillary refill takes less than 2 seconds. Comments: There is a single erythematous macule over the right upper, posterior neck. No insect parts are noted within the wound. Neurological: General: No focal deficit present. Mental Status: She is alert and oriented to person, place, and time. Psychiatric: Mood and Affect: Mood normal. Behavior: Behavior normal. ED Course Medications Administered Medications lidocaine 1 % 0.1-1 mL (has no administration in time range) lidocaine (LMX4) cream (has no administration in time range) sodium chloride (PF) 0.9% PF flush 3 mL (has no administration in time range) sodium chloride (PF) 0.9% PF flush 3 mL (has no administration in time range) diphenhydrAMINE (BENADRYL) injection 50 mg (50 mg Intravenous $Given 07/23/25 1208) sodium chloride 0.9% BOLUS 1,000 mL (1,000 mLs Intravenous $New Bag 07/23/25 1211) famotidine (PEPCID) injection 20 mg (20 mg Intravenous $Given 07/23/25 1209) methylPREDNISolone Na Suc (solu-MEDROL) injection 125 mg (125 mg Intravenous $Given 07/23/25 1206) EPINEPHrine (ADRENALIN) kit 0.5 mg (0.5 mg Intramuscular $Given 07/23/25 1206) Medical Decision Making / Diagnosis YADIEL Li is a 24 year old female who presents following a bee sting. She had felt difficultyswallowing. There was no overt edema of the airway or drooling or stridor. No urticarial rash. She was treated here in the ED with epinephrine, Solu-Medrol, Benadryl, and Pepcid. She has had resolution of her symptoms. She is ambulatory without difficulty. She senses no further sensation of swelling. She is eating and drinking without difficulty. It is now nearly 3 hours since the time of her beesting. She is appropriate discharge. She already has an EpiPen at home which she will keep with her. She will follow-up for formal allergy testing through her clinic. Disposition The patient was discharged. Diagnosis ICD-10-CM 1. Allergic reaction, initial encounter T78.40XA Discharge Medications New Prescriptions DIPHENHYDRAMINE (BENADRYL) 25 MG CAPSULE Take 1 capsule (25 mg) by mouth every 6 hours as needed for itching or allergies. FAMOTIDINE (PEPCID) 20 MG TABLET Take 1 tablet (20 mg) by mouth 2 times daily. PREDNISONE (DELTASONE) 20 MG TABLET Take two tablets daily for 4 more days. Santo Johnson MD 07/23/25 1413 * Clau Zuñiga RN - 07/23/2025 12:16 PM CDT Pt states throat swelling improved along with itching. * Rose Farooq RN - 07/23/2025 12:00 PM CDT Bed: ED10 Expected date: Expected time: Means of arrival: Comments: Triage reaction * Rose Farooq RN - 07/23/2025 11:59 AM CDT Pt reports bee sting about 10 minutes ago. Reports forgot epi pen. ABCS intact, A&Ox4 Triage Assessment (Adult) Row Name 07/23/25 1841 Triage Assessment Airway WDL WDL Respiratory WDL Respiratory WDL WDL Skin Circulation/Temperature WDL Skin Circulation/Temperature WDL WDL Cardiac WDL Cardiac WDL WDL Peripheral/Neurovascular WDL Peripheral Neurovascular WDL WDL Cognitive/Neuro/Behavioral WDL Cognitive/Neuro/Behavioral WDL WDL documented in this encounter Plan of Treatment Not on file documented as of this encounter Visit Diagnoses Diagnosis Allergic reaction, initial encounter- Primary documented in this encounter Administered Medications Active Administered Medications - up to 3 most recent administrations Medication Order MAR Action Action Date Dose Rate Site lidocaine (LMX4) cream Topical, EVERY 1 HOUR PRN, pain, with VAD insertion, Starting on 07/23/25 at 1204, Apply at least 30 minutes prior to VAD insertion in divided doses as needed for size of site for insertion. MAX Dose: 2.5 g ( of 5 g tube) Do NOT give if patient has a history of allergy to any local anesthetic or any asher product. Do NOT use both lidocaine intradermal/subcutaneous injection and the lidocaine cream on the same site. lidocaine 1 % 0.1-1 mL 0.1-1 mL, Other, EVERY 1 HOUR PRN, mild pain with VAD insertion, Starting on 07/23/25 at 1204, MAX dose 1 mL subcutaneous OR intradermal along the side of the vein in divided doses as needed for VAD insertion. Do NOT give if patient has a history of allergy to any local anesthetic or any asher product. Do NOT use both lidocaine intradermal/subcutaneous injection and the lidocaine cream on the same site. sodium chloride (PF) 0.9% PF flush 3 mL 3 mL, Intracatheter, EVERY 8 HOURS SCHEDULED, First dose on 07/23/25 at 1400, to lock peripheral IV dormant line sodium chloride (PF) 0.9% PF flush 3 mL 3 mL, Intracatheter, EVERY 1 MIN PRN, line flush, other, to ensure patency or to lock dormant line, Starting on 07/23/25 at 1204 Inactive Administered Medications - up to 3 most recent administrations Medication Order MAR Action Action Date Dose Rate Site diphenhydrAMINE (BENADRYL) injection 50 mg 50 mg, Intravenous, ONCE, On 07/23/25 at 1210, For 1 dose $Given 07/23/2025 12:08 PM CDT 50 mg EPINEPHrine (ADRENALIN) kit 0.5 mg 0.5 mg, Intramuscular, ONCE, On 07/23/25 at 1210, For 1 dose, 0.3 mg for patient 30-50 kg 0.5 mg for patient greater than 50 kg For anaphylaxis Administer IM in mid outer thigh if possible due to faster absorption See kit labeling for dosing instructions. Not for direct undiluted intravenous injection (1mg/mL = 1:1000). $Given 07/23/2025 12:06 PM CDT 0.5 mg famotidine (PEPCID) injection 20 mg 20 mg, Intravenous, Administer over 2 Minutes, ONCE, On 07/23/25 at 1210, For 1 dose, For ordered IV doses 1-20 mg, give IV Push diluted with 5-10 mL NS over a minimum of 2 minutes. $Given 07/23/2025 12:09 PM CDT 20 mg methylPREDNISolone Na Suc (solu-MEDROL) injection 125 mg 125 mg, Intravenous, Administer over 2 Minutes, ONCE, On 07/23/25 at 1210, For 1 dose $Given 07/23/2025 12:06 PM CDT 125 mg sodium chloride 0.9% BOLUS 1,000 mL Intravenous, 1,000 mL, ONCE, On 07/23/25 at 1210, For 1 dose, Wide Open $New Bag 07/23/2025 12:11 PM CDT 1,000 mLs documented in this encounter Active and Recently Administered Medications Times are shown in CDT. Scheduled Medication Order 07/21/2025 07/22/2025 07/23/2025 diphenhydrAMINE (BENADRYL) injection 50 mg (COMPLETED) 50 mg, Intravenous, ONCE, On 07/23/25 at 1210, For 1 dose 1208 ($Given - Provi jayro: Clau Zuñiga RN) EPINEPHrine (ADRENALIN) kit 0.5 mg (COMPLETED) 0.5 mg, Intramuscular, ONCE, On 07/23/25 at 1210, For 1 dose, 0.3 mg for patient 30-50 kg 0.5 mg for patient greater than 50 kg For anaphylaxis Administer IM in mid outer thigh if possible due to faster absorption See kit labeling for dosing instructions. Not for direct undiluted intravenous injection (1mg/mL = 1:1000). 1206 ($Given - Provi jayro: Clau Zuñiga RN) famotidine (PEPCID) injection 20 mg (COMPLETED) 20 mg, Intravenous, Administer over 2 Minutes, ONCE, On 07/23/25 at 1210, For 1 dose, For ordered IV doses 1-20 mg, give IV Push diluted with 5-10 mL NS over a minimum of 2 minutes. 1209 ($Given - Provi jayro: Clau Zuñiga RN) methylPREDNISolone Na Suc (solu-MEDROL) injection 125 mg (COMPLETED) 125 mg, Intravenous, Administer over 2 Minutes, ONCE, On 07/23/25 at 1210, For 1 dose 1206 ($Given - Provi jayro: Clau Zuñiga RN) sodium chloride (PF) 0.9% PF flush 3 mL 3 mL, Intracatheter, EVERY 8 HOURS SCHEDULED, First dose on 07/23/25 at 1400, to lock peripheral IV dormant line 1400 (Due)2200 (Due) sodium chloride 0.9% BOLUS 1,000 mL (COMPLETED) Intravenous, 1,000 mL, ONCE, On 07/23/25 at 1210, For 1 dose, Wide Open 1211 ($New Bag - Pro vider: Clau Zuñiga RN)1400 (Stopped - Provider: Ana Paula Cunningham RN) PRN Medication Order 07/21/2025 07/22/2025 07/23/2025 lidocaine (LMX4) cream Topical, EVERY 1 HOUR PRN, pain, with VAD insertion, Starting on 07/23/25 at 1204, Apply at least 30 minutes prior to VAD insertion in divided doses as needed for size of site for insertion. MAX Dose: 2.5 g ( of 5 g tube) Do NOT give if patient has a history of allergy to any local anesthetic or any asher product. Do NOT use both lidocaine intradermal/subcutaneous injection and the lidocaine cream on the same site. lidocaine 1 % 0.1-1 mL 0.1-1 mL, Other, EVERY 1 HOUR PRN, mild pain with VAD insertion, Starting on 07/23/25 at 1204, MAX dose 1 mL subcutaneous OR intradermal along the side of the vein in divided doses as needed for VAD insertion. Do NOT give if patient has a history of allergy to any local anesthetic or any asher product. Do NOT use both lidocaine intradermal/subcutaneous injection and the lidocaine cream on the same site. sodium chloride (PF) 0.9% PF flush 3 mL 3 mL, Intracatheter, EVERY 1 MIN PRN, line flush, other, to ensure patency or to lock dormant line, Starting on 07/23/25 at 1204 documented in this encounter Care Teams Operations Section Manager Relationship Specialty Start Date End Date No Ref-Primary, Physician PCP - General 01/09/23 documented as of this encounter
--- OUTSIDE RECORDS SUMMARY | 2025-07-23 16:12 | XMS_ITS | Clinical Summary ---
Author Organization [facility] Address [address] [place] [id number] Care Team Providers Care Pharmacy Technician Trainee Name Role Phone No Ref-Primary, Physician Primary [...] UNDER THE TONGUE TWICE DAILY 01/03/2023 Active predniSONE (DELTASONE) 20 MG tablet Take two tablets daily for 4 more days. 8 tablet 07/23/2025 Active diphenhydrAMINE (BENADRYL) 25 MG capsule Take 1 capsule (25 mg) by mouth every 6 hours as needed for itching or allergies. 30 capsule 07/23/2025 Active famotidine (PEPCID) 20 MG tablet Take 1 tablet (20 mg) by mouth 2 times daily. 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 02/22/2021 Panic attacks 02/22/2021 Polyarthralgia 02/22/2021 Encounters Date Type Department Care Team Description 07/23/2025 12:00 PM CDT - 07/23/2025 2:32 PM CDT Emergency [facility] Emergency Dept [address] [place] [address] Santo Johnson MD Allergic reaction, initial encounter (Primary Dx) Discharge Disposition: Home or Self Care 07/23/2025 Travel 06/03/2025 2:48 PM CDT - 06/03/2025 2:53 PM CDT Emergency [facility] Emergency Dept [address] [place] [address] Discharge Disposition: Left Without Being Seen 06/03/2025 Travel 05/11/2025 Refill [facility] [place] [address] [place] [address] Milvia Horvath, PASurinder Medication Refill from Last 3 Months Social [...] Mass Index 23.24 07/23/2025 11:59 AM CDT Plan of Treatment Health Maintenance Due Date Last Done Comments ADVANCE CARE PLANNING 2001 ANNUAL REVIEW OF HM ORDERS 2001 DEPRESSION ACTION PLAN 2001 NICOTINE/TOBACCO CESSATION COUNSELING Q 1 YR 2001 PHQ-9 2001 PNEUMOCOCCAL VACCINE: PEDIATRICS (0 to 5 YEARS) AND AT-RISK PATIENTS (6 to 49 YEARS) (1 of 1 - PPSV23, PCV20, or PCV21) 2007 04/22/2003, 02/05/2002, 2001 MENINGITIS B VACCINE (1 of 2 - Standard) 2017 COVID-19 VACCINE (3 - season) 2025 09/14/2021, 08/17/2021 INFLUENZA VACCINE (#1) 2025 5, 10/12/2023, 09/30/2022, Additional history exists YEARLY PREVENTIVE VISIT 01/06/2026 01/06/20 25, 01/15/2023, 02/22/2021 PAP 01/15/2026 01/15/2023 CHLAMYDIA SCREENING [...] CHLAMYDIA TRACHOMATIS PCR Routine 01/09/2023 6:16 PM LEHR TENDER Screen for STD (sexually transmitted disease) from Last 3 Months or Most Recently Relevant to Health Maintenance Results * Chlamydia trachomatis PCR - Clinic Collect (01/09/2023 6:16 PM LEHR TENDER) Chlamydia trachomatis Negative Negative 01/11/2023 11:29 AM LEHR TENDER [facility] Comment:A negative result by carroter mediated amplification does not preclude the presence of C. trachomatis infection because results are dependent on proper and adequate collection, absence of inhibitors and sufficient rRNA to be detected. Urine VOIDED URINE SPECIMEN / Unknown Non-blood Collection / Unknown 01/09/2023 6:16 PM LEHR TENDER 01/09/2023 6:28 PM LEHR TENDER Catherine Garzon PA-C LAB - MICRO GENERAL ORDERABLES Final Result [facility] Inf. Diseases Diag. Lab [address] [facility], [address] [place] [address], [facility] [phone] from Last 3 Months or Most Recently Relevant to Health Maintenance Insurance [facility] Care Teams Pharmacy Technician Trainee Relationship Specialty Start Date End Date No Ref-Primary, Physician PCP - General 01/09/23
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
--- OUTSIDE RECORDS SUMMARY | 2025-07-23 16:13 | XMS_ITS | Patient Health Record ---
Author Organization [facility] Address [address] [id number] Care Team Providers Care Ping Pong Table Assembler Name Role Phone SELECT, PROVIDER Primary Care Provider Unavailab le Allergies Allergen (clinical drug ingredient) Drug/Non Drug Allergy documented on EMR Reaction Allergy Type Onset Date Status Sodium Lauryl Sulfate bad mouth sores Drug Allergy Active Reason For Referral No Information Medications Medication SIG (Take, Route, Frequency, Duration) Notes Start Date End Date Status busPIRone HCl 5 MG Tablet 1.5 tabs orall y 2 times a day; Duration: 30 day(s) 12/07/2019 Active Escitalopram Oxalate 5 MG Tablet 1 tab(s) orally once a day; Duration: 30 day(s) 03/13/2020 Active Valium 2 MG Tablet 1 tab(s) orally once before MRI 12/07/2019 Not-Taking Social History Tobacco Use: Social History Observation Description Date Details (start date - stop date) Never Smoker NA - NA Social History Social History Social Info Question Answer Notes Tobacco Status I am: never smoker Additional Details Category Social Info Options Details Social History 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 Sexually active: With male Recreational drug use: no Exercise: active at work Level of education 11th grade Smoke detector use: Yes Caffeine: yes Marital Status Single Financial Concerns: no Secondhand smoke exposure: no Hobby: art, guitar, dog Confucianist: Mandaen Primary language spoken: Syriac Guns in home: No Seat belt use: Yes Pets: dog Do you feel safe yes Race /White Country of Origin(): [facility] Problems Problem Type SNOMED Code ICD Code Onset Dates Problem Status W/U Status Risk Notes Problem Generalized anxiety disorder (53876397) LORRAINE (generalized anxiety disorder) (F41.1) Active confirmed Problem Claustrophobia (82009544) Claustrophobia (F40.240) Active confirmed Plan Of Treatment No Information Medical (General) History Medical History History ICD Code DOFV: 12/07/2019
--- OUTSIDE RECORDS SUMMARY | 2025-07-23 16:13 | XMS_ITS | Clinical Summary ---
[facility] Organization [facility] Address [address] [address] Care Team Providers Care Police Superintendent Name Role Phone No Primary/Referring, Kjy Primary Care Provider Unavailable Source Comments You are receiving this document as you are listed as the primary care provider,follow-up provider, or the patient has been referred to you for consultation.This is in compliance with the Medicare andL[facility] Centercaid EHR Incentive Program,which states Providers who transition their patient to another setting of careor provider of care or refers their patient to another provider of care shouldprovide summary care record for each transition of care or referral. 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 Gender Identity Not on file Sexual Orientation Not on file Last Filed Vital Signs Vital Sign Reading Time Taken Comments Blood Pressure 118/86 12/28/2022 7:57 AM PAINTING WORKER Pulse 80 12/28/2022 7:57 AM PAINTING WORKER Temperature 36.7 C (98 F) 02/23/2025 4:13 PM CDT Respiratory Rate 18 12/28/2022 7:57 AM PAINTING WORKER Oxygen Saturation 99% 12/28/2022 7:57 AM PAINTING WORKER Inhaled Oxygen Concentration - - Weight - - Height - - Body Mass Index - - Plan of Treatment Health Maintenance Due Date Last Done Comments Cervical Cancer Screening Due 2001 Hep C Screening (Preventive Services) 2001 MenB Immunization Discussion 2001 HepA Vaccine (2 of 2 - 2-dose series) 01/22/2015 07/25/2014 Adult Preventive Visit 2019 HepB Vaccine (1) 2020 Chlamydia 01/06/2025 01/06/2024, 12/19, 05/23/2023, Additional history exists COVID-19 Vaccine (3 - season) 2025 09/14/2021, 08/17/2021 Influenza Vaccine (#1) [...] HIV Screening (Preventive Services) Completed 01/06/[address] [place] [address] Care Teams Police Superintendent Relationship Specialty Start Date End Date No Primary/Referring, Danielle PCP - General 12/28/22
--- OUTSIDE RECORDS SUMMARY | 2025-07-23 16:13 | XMS_ITS | Encounter Summary ---
Author Organization [facility] Address [address] [place] [address] Care Team Providers Care Laborer Shaft [place] Name Role Phone No Ref-Primary, Physician Primary Care Provider Encounter Details Date Type Department Care Team (Late st Contact Info) Description 11/02/2019 Records - [facility] [address] [place] [address] Tresa Ken RN Social History [...] that she is planning on going to [facility] for care ASSISTANT * Tresa Ken - 11/02/2019 5:52 PM [...] and states pain has been steadily increasing. ASSISTANT documented in this encounter Plan of Treatment Not on file documented as of this encounter Visit Diagnoses Not on filedocumented in this encounter Care Teams Laborer [place] Relationship Specialty Start Date End Date No Ref-Primary, Physician PCP - General 01/09/23 documented as of this encounter
--- OUTSIDE RECORDS SUMMARY | 2025-07-23 16:13 | XMS_ITS | Encounter Summary ---
Author Organization [facility] Address [address] [place] [address] Care Team Providers Care Personal Lines Sales Executive Name Role Phone No Ref-Primary, Physician Primary Care Provider Encounter Details Date Type Department Care Team (Latest Contact Info) Description 07/23/2025 Travel Social History Tobacco Use Types Packs/Day [...] on filedocumented in this encounter Care Teams Personal Lines Sales Executive Relationship Specialty Start Date End Date No Ref-Primary, Physician PCP - General 01/09/23 documented as of this encounter
--- OUTSIDE RECORDS SUMMARY | 2025-07-23 16:13 | XMS_ITS | Encounter Summary ---
Author Organization [place] Address [facility] [place] [address] Care Team Providers Care Special Certificate Dictator Name Role Phone No Ref-Primary, Physician Primary Care Provider Reason for Visit * Reason Comments Medication Refill Encounter Details Date Type Department Care Team (Late st Contact Info) Description 05/11/2025 Refill [facility] [address] [address] Milvia Horvath, PA-C [address] [place] [address] Medication Refill Social History Tobacco Use Types [...] disorder documented in this encounter Care Teams Special Certificate Dictator Relationship Specialty Start Date End Date No Ref-Primary, Physician PCP - General 01/09/23 documented as of this encounter
== END 2025-07-23 17:14 | disposition left against medical advice (07) ==
LOC: ED 17:14
DX: Z53.21 Procedure and treatment not carried out due to patient leaving prior to being seen by health care provider (principal)

== ENCOUNTER 2025-09-23 12:30 | Emergency (ER) | payer MEDICAID, SELFPAY ==
--- OUTSIDE RECORDS SUMMARY | 2025-09-23 10:50 | XMS_ITS | Encounter Summary ---
Author Organization [facility] Address [address] [place] [address] Care Team Providers Care Document Management Technician Name Role Phone No Ref-Primary, Physician Primary Care Provider Reason for Visit * Reason Comments Urgent Care Thinks she is having appendicitis for the past 5 days-nausea, pain in that area, fever (no longer), rebound tenderness and feeling uncomfortable that is getting worse Encounter Details Date Type Department Care Team (Late st Contact Info) Description 09/23/2025 10:50 AM OPTICAL EFFECTS CAMERA OPERATOR Office Visit [facility] [address] [place] [phone] Zay Ro MD [address] [place] [address] RLQ abdominal pain (Primary Dx) Social History Tobacco Use Types Packs/Day Years Used Date Smoking Tobacco: Every Day Vaping Device Smokeless Tobacco: Never Tobacco Cessation:Ready [...] Sign Reading Time Taken Comments Blood Pressure 134/87 09/23/2025 11:30 AM OPTICAL EFFECTS CAMERA OPERATOR Pulse 95 09/23/2025 11:30 AM OPTICAL EFFECTS CAMERA OPERATOR Temperature 36.9 C (98.5 F) 09/23/2025 11:30 AM OPTICAL EFFECTS CAMERA OPERATOR Respiratory Rate 18 09/23/2025 11:30 AM OPTICAL EFFECTS CAMERA OPERATOR Oxygen Saturation 100% 09/23/2025 11:30 AM OPTICAL EFFECTS CAMERA OPERATOR Inhaled Oxygen Concentration - - Weight 65.3 kg (144 lb) 09/23/2025 11:30 AM OPTICAL EFFECTS CAMERA OPERATOR Height 167.6 cm (5' 6) 09/23/2025 11:30 AM OPTICAL EFFECTS CAMERA OPERATOR Body Mass Index 23.24 09/23/2025 11:30 AM OPTICAL EFFECTS CAMERA OPERATOR documented in this encounter Progress Notes * Imelda Flowers MA - 09/23/2025 10:50 AM CST Urgent Care Clinic Visit Chief Complaint Patient presents with Urgent Care Thinks she is having appendicitis for the past 5 days-nausea, pain in that area, fever (no longer),rebound tenderness and feeling uncomfortable that is getting worse 09/23/2025 11:27 AM Additional Questions Roomed by Imelda 09/23/2025 Forms Any forms needing to be completed Yes 09/23/2025 11:27 AM Patient Reported Additional Medications Patient reports taking the following new medications Seroquel, Ibuprofen and Tylenol PRN CAL EFFECTS CAMERA OPERATOR * Zay Ro MD - 09/23/2025 10:50 AM CST THIS IS A TRIAGE ENCOUNTER. Cathryn Li is a 24 year old female presenting with a concern about possible appendicitis. For the past 4-5 days, patient has experienced worsening RLQ rebound tenderness, RLQ pain worse with position changes and with walking, nausea, fevers up to 101 F (last night), Patient has self-performed the Rosving sign, obturator sign these signs were all positive. No vomiting Patient requests to be evaluated at the [facility] and does not want to be seen at a [facility]. I gave report to the emergency room physician Dr. Cohen at the [facility] emergency room today at around 11:45 am. Patient will go this emergency room for further evaluation. Patient was toldbe me to be on an empty stomach. I told the patient that I would not charge for this triage evaluation. Zay Ro MD CAL EFFECTS CAMERA OPERATOR documented in this encounter Plan of Treatment Not on file documented as of this encounter Visit Diagnoses Diagnosis RLQ abdominal pain- Primary Abdominal pain, right lower quadrant documented in this encounter Care Teams Document Management Technician Relationship Specialty Start Date End Date No Ref-Primary, Physician PCP - General 01/09/23 documented as of this encounter
--- OUTSIDE RECORDS SUMMARY | 2025-09-23 12:32 | XMS_ITS | Clinical Summary ---
Author Organization [facility] Address [address] [place] [address] Care Team Providers Care Repeater Chief Name Role Phone No Ref-Primary, Physician Primary Care Provider Allergies Active Allergy Reactions Criticality Noted Date Comments Fluoxetine Other (See Comments) 06/10/2022 Mouth sores Sodium Lauryl Sulfate Anaphylaxis High 11/02/2019 Mouth ulcers Medications mirtazapine (REMERON) 15 MG tablet Take 15 mg by mouth At Bedtime 3 Active gabapentin (NEURONTIN) 300 MG capsule TAKE 1 CAPSULE BY MOUTH THREE TIMES DAILY NEEDED FOR ANXIETY 3 Active baclofen (LIORESAL) 10 MG tablet Take 10 mg by mouth 3 times daily as needed 3 Active buprenorphine (SUBUTEX) 2 [address] SUBL sublingual tablet PLACE 2 TABLETS UNDER THE TONGUE TWICE DAILY 3 Active predniSONE (DELTASONE) 20 MG tablet Take two tablets daily for 4 more days. 8 tablet 5 Active Additional Information Patient not taking.Reported on 09/23/2025 diphenhydrAMINE (BENADRYL) 25 MG capsule Take 1 capsule (25 mg) by mouth every 6 hours as needed for itching or allergies. 30 capsule 5 Active Additional Information Patient not taking.Reported on 09/23/2025 famotidine (PEPCID) 20 MG tablet Take 1 tablet (20 mg) by mouth 2 times daily. 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 02/22/2021 Panic attacks 02/22/2021 Polyarthralgia 02/22/2021 Encounters Date Type Department Care Team Description 09/23/2025 10:50 AM CHILD CARE COORDINATOR Office Visit [facility] [place] [address] [place] [address] [address] [place] [address] Zay Ro MD RLQ abdominal pain (Primary Dx) 09/23/2025 Travel 07/23/2025 5:30 PM CDT - 07/23/2025 8:46 PM CDT Emergency [facility] Emergency Dept [address] [place] [address] Luisito Saunders MD Allergic reaction to bee sting (Primary Dx) Discharge Disposition: Home or Self Care 07/23/2025 12:00 PM CDT - 07/23/2025 2:32 PM CDT Emergency [facility] Emergency Dept [address] [place] [address] Santo Johnson MD Allergic reaction, initial encounter (Primary Dx) Discharge Disposition: Home or Self Care 07/23/2025 Travel from Last 3 Months Social History Tobacco [...] Comments Blood Pressure 134/87 09/23/2025 11:30 AM CHILD CARE COORDINATOR Pulse 95 09/23/2025 11:30 AM CHILD CARE COORDINATOR Temperature 36.9 C (98.5 F) 09/23/2025 11:30 AM CHILD CARE COORDINATOR Respiratory Rate 18 09/23/2025 11:30 AM CHILD CARE COORDINATOR Oxygen Saturation 100% 09/23/2025 11:30 AM CHILD CARE COORDINATOR Inhaled Oxygen Concentration - - Weight 65.3 kg (144 lb) 09/23/2025 11:30 AM CHILD CARE COORDINATOR Height 167.6 cm (5' 6) 09/23/2025 11:30 AM CHILD CARE COORDINATOR Body Mass Index 23.24 09/23/2025 11:30 AM CHILD CARE COORDINATOR Plan of Treatment Health Maintenance Due Date [...] Procedure Name Priority Date/Time Associated Diagnosis Comments EKG 12-LEAD, TRACING ONLY STAT 07/23/2025 6:14 PM CDT CBC WITH PLATELETS & DIFFERENTIAL STAT 07/23/2025 6:06 PM CDT CBC WITH PLATELETS AND DIFFERENTIAL STAT 07/23/2025 6:06 PM CDT TROPONIN T, HIGH SENSITIVITY STAT 07/23/2025 6:06 PM CDT BASIC METABOLIC PANEL STAT 07/23/2025 6:06 PM CDT CHLAMYDIA TRACHOMATIS PCR Routine 01/09/2023 6:16 PM CHILD CARE COORDINATOR Screen for STD (sexually transmitted disease) from Last 3 Months or Most Recently Relevant to Health Maintenance Results * EKG 12-lead, tracing only (07/23/2025 6:14 PM CDT) Systolic Blood Pressure mmHg RADIOLOGY RESULTS Diastolic Blood Pressure mmHg RADIOLOGY RESULTS Ventricular Rate 120 BPM RAD IOLOGY RESULTS Atrial Rate 120 BPM RADIOLOG Y RESULTS FL Interval 120 ms RADIOLOG Y RESULTS QRS Duration 82 ms RADIOLO GY RESULTS QT 434 ms RADIOLOGY RESULTS QTc 613 ms RADIOLOGY RESULTS P [place] degrees RADIOLOGY RESULTS R AXIS 37 degrees RADIOLOGY RESULTS T [place] 46 degrees RADIOLOGY RESULTS Interpretation ECG Sinus tachycardia Nonspecific ST abnormality Prolonged QT Abnormal ECG No previous ECGs available Unconfirmed report - interpretation of this ECG is computer generated - see medical record for final interpretation Confirmed by - EMERGENCY ROOM, PHYSICIAN ([id number]), web content editor Michel Coates ([id number]) on 07/25/2025 7:57:13 AM RADIOLOGY RESULTS 07/23/2025 6:14 PM CDT 07/25/2025 7:57 AM CDT us Luisito Saunders MD ECG ORDERABLES Edited Result - Final RADIOLOGY RESULTS * (ABNORMAL) CBC with platelets and differential (07/23/2025 6:06 PM CDT) WBC Count 19.03(H) 4.00 - 11.00 10e3/uL 07/23/2025 6:15 PM CDT [facility] RBC Count 4.35 3.80 - 5.20 10e6/uL 07/23/2025 6:15 PM CDT [facility] Hemoglobin 12.8 11.7 - 15.7 g/dL 07/23/2025 6:15 PM CDT [facility] Hematocrit 37.4 35.0 - 47.0 % 07/23/2025 6:15 PM CDT [facility] MCV 86.0 78.0 - 100.0 fL 07/23/2025 6:15 PM CDT [facility] MCH 29.4 26.5 - 33.0 pg 07/23/2025 6:15 PM CDT [facility] MCHC 34.2 31.5 - 36.5 g/dL 07/23/2025 6:15 PM CDT [facility] RDW 11.9 10.0 - 15.0 % 07/23/2025 6:15 PM CDT [facility] Platelet Count 322 150 - 450 10e3/uL 07/23/2025 6:15 PM CDT [facility] % Neutrophils 94.7 % 07/23/2025 6:15 PM CDT [facility] % Lymphocytes 4.0 % 07/23/2025 6:15 PM CDT [facility] % Monocytes 0.6 % 07/23/2025 6:15 PM CDT [facility] % Eosinophils 0.0 % 07/23/2025 6:15 PM CDT [facility] % Basophils 0.1 % 07/23/2025 6:15 PM CDT [facility] % Immature Granulocytes 0.6 % 07/23/2025 6:15 PM CDT [facility] NRBCs per 100 WBC 0.0 <1.0 /100 07/23/2025 6:15 PM CDT [facility] Absolute Neutrophils 18.01(H) 1.60 - 8.30 10e3/uL 07/23/2025 6:15 PM CDT [facility] Absolute Lymphocytes 0.76(L) 0.80 - 5.30 10e3/uL 07/23/2025 6:15 PM CDT [facility] Absolute Monocytes 0.12 0.00 - 1.30 10e3/uL 07/23/2025 6:15 PM CDT [facility] Absolute Eosinophils <0.03 0.00 - 0.70 10e3/uL 07/23/2025 6:15 PM CDT [facility] Absolute Basophils <0.03 0.00 - 0.20 10e3/uL 07/23/2025 6:15 PM CDT [facility] Absolute Immature Granulocytes 0.12 <=0.40 10e3/uL 07/23/2025 6:15 PM CDT [facility] Absolute NRBCs <0.03 10e3/uL 07/23/2025 6:15 PM CDT [facility] Blood BLOOD SPECIMEN / Unknown Venipuncture / Unknown 07/23/2025 6:06 PM CDT 07/23/2025 6:11 PM CDT us Luisito Saunders MD LAB - BLOOD ORDERABLES Final R esult LABORATORY [facility] Acute Care Lab [address] [facility] Lab (1st floor, no room number) [place] [address] * Troponin T, High Sensitivity (07/23/2025 6:06 PM CDT) [facility] Troponin T, High Sensitivity <6 <=14 ng/L 07/23/2025 6:38 PM CDT [facility] Comment: Either a High Sensitivity Troponin T baseline (0 hours) value = 100 ng/L, or an increase in High Sensitivity Troponin T = 7 ng/L at 2 hours compared to 0 hours (2-0 hours), suggests myocardial injury, and urgent clinical attention is required. If the 2-0 hours increase is <7 ng/L, a High Sensitivity Troponin T result above gender-specific reference ranges warrants further evaluation. Recommendations for further evaluation include correlation with clinical decision-making tool (e.g., HEART), a 3rd High Sensitivity Troponin T test 2 hours after the 2nd (a 20% change from baseline would represent concern), admission for observation, close PCC/cardiology follow-up, or urgent outpatient provocative testing. Blood BLOOD SPECIMEN / Unknown Venipuncture / Unknown 07/23/2025 6:06 PM CDT 07/23/2025 6:11 PM CDT Luisito Saunders MD LAB - BLOOD ORDERABLES Final R esult [facility] Acute Care Lab [address] Lab (1st floor, no room number) [place] [address], [facility] * (ABNORMAL) Basic metabolic panel (07/23/2025 6:06 PM CDT) [facility] Sodium 141 135 - 145 mmol/L 07/23/2025 6:38 PM CDT LABORATORY Potassium 2.9(L) 3.4 - 5.3 mmol/L 07/23/2025 6:38 PM CDT LABORATORY Chloride 107 98 - 107 mmol/L 07/23/2025 6:38 PM CDT LABORATORY Carbon Dioxide (CO2) 19(L) 22 - 29 mmol/L 07/23/2025 6:38 PM CDT LABORATORY Anion Gap 15 7 - 15 mmol/L 07/23/2025 6:38 PM CDT LABORATORY Urea Nitrogen 7.0 6.0 - 20.0 mg/dL 07/23/2025 6:38 PM CDT LABORATORY Creatinine 0.54 0.51 - 0.95 mg/dL 07/23/2025 6:38 PM CDT LABORATORY GFR Estimate >90 >60 mL/min/1.7 3m2 07/23/2025 6:38 PM CDT LABORATORY Comment:eGFR calculated usin 2020 CKD-EPI equation. Calcium 8.9 8.8 - 10.4 mg/dL 07/23/2025 6:38 PM CDT LABORATORY Glucose 210(H) 70 - 99 mg/dL 07/23/2025 6:38 PM CDT LABORATORY Blood BLOOD SPECIMEN / Unknown Venipuncture / Unknown 07/23/2025 6:06 PM CDT 07/23/2025 6:11 PM CDT Luisito Saunders MD LAB - BLOOD ORDERABLES Final R esult [facility] Lab [address] Lab (1st floor, no room number) [place] [address] * Chlamydia trachomatis PCR - Clinic Collect (01/09/2023 6:16 PM CHILD CARE COORDINATOR) Chlamydia trachomatis Negative Negative 01/11/2023 11:29 AM CHILD CARE COORDINATOR [facility] Comment:A negative result by flight tower dispatcher mediated amplification does not preclude the presence of C. trachomatis infection because results are dependent on proper and adequate collection, absence of inhibitors and sufficient rRNA to be detected. Urine VOIDED URINE SPECIMEN / Unknown Non-blood Collection / Unknown 01/09/2023 6:16 PM CHILD CARE COORDINATOR 01/09/2023 6:28 PM CHILD CARE COORDINATOR us Catherine Garzon PA-C LAB - MICRO GENERAL ORDERABLES Final Result [facility] Inf. Diseases Diag. Lab [address] [facility], [address] [place] [address], [facility] [phone] from Last 3 Months or Most Recently Relevant to Health Maintenance Insurance [facility] Care Teams Repeater Chief Relationship Specialty Start Date End Date No Ref-Primary, Physician PCP - General 01/09/23
--- OUTSIDE RECORDS SUMMARY | 2025-09-23 12:33 | XMS_ITS | Patient Health Record ---
Author Organization [facility] Address [address] [id number] Care Team Providers Care Civil Cad Designer Name Role Phone SELECT, PROVIDER Primary Care [...] smoke exposure: no Hobby: art, guitar, dog Yazidi: Buddhism Primary language spoken: Gambian Guns in home: No Seat belt use: Yes Pets: dog Do you feel safe yes Race /White Country of Origin(): [facility] Problems Problem Type SNOMED Code ICD Code Onset Dates Problem Status W/U Status Risk Notes Problem Generalized anxiety disorder (86630740) LORRAINE (generalized anxiety disorder) (F41.1) Active confirmed Problem Claustrophobia (60575292) Claustrophobia (F40.240) Active confirmed Plan Of Treatment No Information Medical (General) History Medical History History ICD Code DOFV: 12/07/2019
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
--- OUTSIDE RECORDS SUMMARY | 2025-09-23 12:33 | XMS_ITS | Clinical Summary ---
Author Organization [facility] Address [address] [address] Care Team Providers Care Extrusion Press Adjuster Name Role Phone No Primary/Referring, Kjy Primary Care Provider Unavailable Source Comments You are receiving this document as you are listed as the primary care provider,follow-up provider, or the patient has been referred to you for consultation.This is in compliance with the Medicare and[facility] EHR Incentive Program,which states Providers who transition their patient to another setting of careor provider of care or refers their patient to another provider of care shouldprovide summary care record for each transition of care or referral. Critical access hospital Allergies Active Allergy Reactions Criticality Noted Date [...] on file Legal Sex Female 5:26 PM JAVA SWING DEVELOPER Gender Identity Not on file Sexual Orientation Not on file Last Filed Vital Signs Vital Sign Reading Time Taken Comments Blood Pressure 118/86 12/28/2022 7:57 AM JAVA SWING DEVELOPER Pulse 80 12/28/2022 7:57 AM JAVA SWING DEVELOPER Temperature 36.7 C (98 F) 02/23/2025 4:13 PM CDT Respiratory Rate 18 12/28/2022 7:57 AM JAVA SWING DEVELOPER Oxygen Saturation 99% 12/28/2022 7:57 AM JAVA SWING DEVELOPER Inhaled Oxygen Concentration - - Weight - [...] HIV Screening (Preventive Services) Completed 01/06/[address] [place] [address] [place] [address] Care Teams Extrusion Press Adjuster Relationship Specialty Start Date End Date No Primary/Referring, Danielle PCP - General 12/28/22
--- OUTSIDE RECORDS SUMMARY | 2025-09-23 12:33 | XMS_ITS | Encounter Summary ---
Author Organization [facility] Address [address] [place] [address] Care Team Providers Care Settlement Technician Name Role Phone No Ref-Primary, Physician Primary Care Provider Encounter Details Date Type Department Care Team (Latest Contact Info) Description 09/23/2025 Travel Social History Tobacco Use Types Packs/Day Years Used Date Smoking Tobacco: Every Day Vaping Device Smokeless Tobacco: Never Adolescent Education [...] on filedocumented in this encounter Care Teams Settlement Technician Relationship Specialty Start Date End Date No Ref-Primary, Physician PCP - General 01/09/23 documented as of this encounter
--- OUTSIDE RECORDS SUMMARY | 2025-09-23 12:33 | XMS_ITS | Encounter Summary ---
Author Organization [facility] Address [address] [place] [address] Care Team Providers Care Lithoduplicator Operator Name Role Phone No Ref-Primary, Physician Primary Care Provider Encounter Details Date Type Department Care Team (Late st Contact Info) Description 11/02/2019 Records - [facility] [address] [place] [address] Tresa Ken RN Social History [...] that she is planning on going to [facility] care ENSATION SUPERVISOR * Tresa Ken - 11/02/2019 5:52 PM [...] and states pain has been steadily increasing. ENSATION SUPERVISOR documented in this encounter Plan of Treatment Not on file documented as of this encounter Visit Diagnoses Not on filedocumented in this encounter Care Teams Lithoduplicator Operator Relationship Specialty Start Date End Date No Ref-Primary, Physician PCP - General 01/09/23 documented as of this encounter
--- OUTSIDE RECORDS SUMMARY | 2025-09-23 12:33 | XMS_ITS | Encounter Summary ---
Author Organization [place] Address [facility] [place] [address] Care Team Providers Care Accountant Tax Name Role Phone No Ref-Primary, Physician Primary Care Provider Reason for Visit * Reason Comments Medication Refill Encounter Details Date Type Department Care Team (Late st Contact Info) Description 05/11/2025 Refill [facility] [address] [address] Milvia Horvath, PA-C [address] [place] [address] Medication Refill Social History Tobacco Use Types [...] disorder documented in this encounter Care Teams Accountant Tax Relationship Specialty Start Date End Date No Ref-Primary, Physician PCP - General 01/09/23 documented as of this encounter
[2025-09-23 13:13] VITALS: BP 110/80; PULSE 75; RESP 16; TEMP 36.9; O2SAT 99
[2025-09-23 13:39] LABS: Appearance Urine Clear (Clear)
[2025-09-23 13:41] LABS: Ur HCG Qualitative* Negative (Negative)
--- NOTE | 2025-09-23 14:13 | ED_ITS ---
HPI - General Adult General Date Seen: 09/23/25 Chief complaint: Abdominal Pain Stated complaint: abd pain/poss appendicitis Time Seen by Provider: 09/23/25 13:14 History of Present Illness HPI narrative: Patient is a 24-year-old young woman who was at an urgent care in [place] today and was referred here for evaluation of abdominal pain. She tells me that about 5 days ago she developed some pain that was more periumbilical, just below the umbilicus. She has developed significant nausea over the past few days and the pain has migrated to the right lower quadrant. She says the pain isn't terrible but when she moves it bothers her. She has had a little bit of mild dysuria but not terrible and no urgency or frequency. She is sexually active, not on any control. She has no concerns about exposure to STDs, no new partners. No unusual discharge. She has not had any vomiting, has not had any appetite for the past few days. Bowel movements are smaller, no diarrhea or bloody stools. No abdominal surgeries, no gynecologic history. She has been taking Tylenol, reports that her temperature was just below 100 earlier today. Related Data Home Medications ?Medication ?Instructions ?Recorded ?Confirmed epinephrine 0.3 mg/0.3 mL 0.3 mg IM PRN allergies 01/1607/13/25 injection, auto-injector gabapentin 300 mg capsule 300 mg PO 3XD 02/07/2509/23 quetiapine 100 mg tablet (Seroquel) 100 mg PO QHS 06/1009/23/25 Allergies Allergy/AdvReac Type Severity Reaction Status Date / Time fluoxetine Allergy Unknown Verified 09/23/25 13:17 Review of Systems Status of ROS: Reports: 10 or more systems reviewed and unremarkable except as noted in History and below PFSH FOR[facility]LY [facility] Social History Smoking Status: Unknown if ever smoked Do you use any of these nicotine containing products: E-Cigarettes Second hand tobacco smoke exposure: Yes How often do you have a drink containing alcohol: never AUDIT-C Alcohol total score: 0 Non-prescribed substance use: marijuana (any form) and opiods/painkillers service: No Exam Narrative: Exam Narrative: Vital signs reviewed In general, alert, nontoxic young woman. She moves gingerly. Head: Normocephalic, atraumatic. Eyes: Sclera clear. Pupils equal and reactive. ENT: Mucous membranes moist. Neck: Supple without adenopathy. Heart: Regular rate and rhythm without murmur. Lungs: Clear. No increased work of breathing, crackles or wheezes. Abdomen: Soft, she has some tenderness in the right lower quadrant and right pelvis, primarily rebound tenderness. No guarding or rigidity. Positive Rosvigs sign. Extremities: Well perfused, pulses intact. No significant edema. Neurologic: Alert, conversant. Speech fluent, face symmetric. Moves all extremities equally. Skin: Warm, dry well perfused. Affect: Normal. Const: Vital Signs, click to edit/add: Vital Signs - 24 hr 09/23/25 13:13 09/23/25 15:24 Temperature 98.4 F Pulse Rate [Pulse Oximeter] 75 Respiratory Rate 16 16 Blood Pressure [Ri ght Upper Arm] 110/80 118/78 Pulse Oximetry 99 99 Oxygen Delivery Me thod Room Air Room Air Course Course ED Course: Patient presents with right lower abdominal pain progressing for the past 5 days or so. She does not have a surgical abdomen though she does have some rebound tenderness. Diagnostic considerations would include appendicitis, ovarian pathology such as cyst or abscess, PID, urinary tract infection, kidney stone, inflammatory bowel disease among others. I think with her story and exam CT scan is reasonable to rule out appendicitis. I did do urinalysis which is negative aside from moderate squamous cells and few bacteria. Her test is negative, ruling out ectopic . I reviewed her CT scan, she has some free fluid in the pelvis and I suspect this represents a ruptured ovarian cyst. I did not see any evidence of appendicitis. Her labs are reviewed in all entirely normal. Radiology reads her CT as likely ruptured ovarian cyst. I have discussed this with her, she is thrilled to learn that she does not have appendicitis and says she is excited to go home and eat. Reviewed natural expected course of ruptured cyst, return for severe uncontrolled pain, fevers or other worsening symptoms. She did request something stronger for a day or 2 for pain as she has had difficulty sleeping. I gave her oxycodone for tablets, otherwise pain control with ibuprofen and/or Tylenol, primary care follow-up if not improving in the next week. Vital Signs Vital signs: Initial Vital Signs Temperature 98.4 F 09/23/25 13:13 Temperature Source Temporal Artery Scan 09/23/25 13:13 Pulse Rate 75 09/23/25 13:13 Respiratory Rate 16 09/23/25 13:13 Blood Pressure 110/80 09/23/25 13:13 Blood Pressure Mean 90 09/23/25 13:13 Blood Pressure Position Sitting 09/23/25 13:13 Pulse Oximetry 99 09/23/25 13:13 Oxygen Delivery Method Room Air 09/23/25 13:13 Vital Signs Temperature 98.4 F 09/23/25 13:13 Pulse Rate 75 09/23/25 13:13 Respiratory Rate 16 09/23/25 13:13 Blood Pressure 110/80 09/23/25 13:13 Pulse Oximetry 99 09/23/25 13:13 Oxygen Delivery Method Room Air 09/23/25 13:13 Temperature 98.4 F 09/23/25 13:13 Pulse Rate 75 09/23/25 13:13 Respiratory Rate 16 09/23/25 15:24 Blood Pressure 118/78 09/23/25 15:24 Pulse Oximetry 99 09/23/25 15:24 Oxygen Delivery Method Room Air 09/23/25 15:24 Medications Administered Medications: Discontinued Medications Generic Name Dose Route Start Last Admin Trade Name Freq PRN Reason Stop Dose Admin Sodium Chloride 1,000 mls @ 1,000 mls/hr 09/23/25 14:15 09/23/25 15:24 0.9 % Sodium Chloride 1000 Ml IV 09/23/25 15:14 Infused .Q1H BARRY Infusion Ondansetron HCl 4 mg 09/23/25 14:11 09/23/25 14:28 Ondansetron 2 Mg/Ml Inj IVP 09/23/25 14:12 4 mg ONCE ONE Administration Medical Decision Making Lab Data Lab results reviewed: Yes I reviewed the patient's lab results Labs: Lab Results 09/23/25 09/23/25 Range/Units 13:20 14:20 WBC 7.53 (4.50-11.00) K/uL RBC 4.72 (4.00-5.20) m/uL Hgb 13.9 (12.0-16.0) gm/dL Hct 42.0 (33.0-51.0) % MCV 89 (80-100) fL MCH 29 (26-34) pg MCHC 33 (32-36) gm/dL RDW Coeff of Allan 11.9 (11.5-15.5) % Plt Count 284 (140-440) K/uL Neut % (Auto) 68.8 (42.0-72.0) % Lymph % (Auto) 22.7 (20-44) % [place] % (Auto) 5.4 (0.0-11.0) % Eos % (Auto) 2.3 (0.0-7.0) % Baso % (Auto) 0.7 (0.0-3.0) % Neut # (Auto) 5.18 (1.7-7.0) K/uL Lymph # (Auto) 1.71 (0.90-2.90) K/uL [place] # (Auto) 0.40 (0.00-0.90) K/UL Eos # (Auto) 0.17 (0.00-0.50) K/uL Baso # (Auto) 0.05 (0.00-0.30) K/uL Abs Immat Gran (auto) 0.01 (0.00-0.30) K/uL Imm/Tot Granulo (auto) 0.1 % Sodium 138 (135-149) mmol/L Potassium 3.8 (3.6-5.1) mmol/L Chloride 99 (96-114) mmol/L Carbon Dioxide 26 (20-32) mmol/L Anion Gap 13 (7-15) mEq/L BUN 7 (5-24) mg/dL Creatinine 0.6 (0.5-1.5) mg/dL Estimated GFR 129 ml/min Glucose 98 (60-115) mg/dL Calcium 9.1 (8.4-10.6) mg/dL C-Reactive Protein < 0.5 L (0.5-1.0) mg/dL Urine Color Yellow (Yellow) Urine Appearance Clear (Clear) Urine pH 7.5 (5.0-8.5) Ur Specific [place] 1.015 (1.000-1.030) Urine Protein Negative (Negative) Urine Glucose (UA) Negative (Negative) Urine Ketones Negative (Negative) Urine Blood Negative (Negative) Urine Nitrite Negative (Negative) Urine Bilirubin Negative (Negative) Urine Urobilinogen 0.2 (0.2-1.0) Ur Leukocyte Esterase Negative (Negative) Urine RBC 0-2 (0-2) Urine WBC 0-2 (0-5) Ur Squamous Epith Cells Moderate A (None-Few) Urine Bacteria Few A (None) Urine HCG, Qual Negative (Negative) Imaging Data CT scan - abdomen: Attestation: I have reviewed the pertinent imaging results. Radiologist's impression: Patient: Cathryn Li MR#: [id number] : 2000 Acct:[id number] Loc: ED Service Date: 09/23/[address]: Ordering Physician: Latonya Stoner M.D. Date of Service: 09/23/25 Procedure(s): CT abdomen pelvis w con Accession Number(s): [id number] cc: Latonya Stoner M.D.; Provider,Not a Local~ For Patients: As a result of the Cures Act, medical imaging exams and procedure reports are released immediately into your electronic medical record. You may view this report before your referring provider. If you have questions, please contact your health care provider. Indication: Right lower quadrant pain Technique: CT abdomen/pelvis with IV contrast utilizing 100 mL Isovue 370 Comparison: CT pelvis on June 03, 2025 Findings: Lower thorax: Unremarkable Abdomen/pelvis: The liver, gallbladder and biliary system, spleen, pancreas, adrenal glands, kidneys, ureters, and bladder are unremarkable. Arcuate uterus. Suspected collapsed/ruptured right ovarian cyst measuring approximately 2.2 centimeters in greatest dimension (series number 2, image 113 and 114) with small volume free fluid in the pelvis. No evidence of bowel obstruction or inflammation. The appendix is unremarkable. No free air. No abscess. No abdominopelvic lymphadenopathy. The vasculature is unremarkable. Soft tissue/musculoskeletal: Tiny fat containing umbilical hernia. There are a few small benign bone islands; otherwise, the bones are unremarkable. Impression: 1. Suspected collapsed/ruptured right ovarian cyst measuring approximately 2.2 centimeters in greatest dimension (series number 2, image 113 and 114) with small volume free fluid in the pelvis. 2. No evidence of bowel obstruction or inflammation. The appendix is unremarkable. Please note that all CT scans at this facility use dose modulation, iterative reconstruction, and/or weight-based dosing when appropriate to reduce radiation dose to as low as reasonably achievable. Discharge Plan Discharge Clinical Impression: Rupture of cyst of right ovary Patient Disposition: Home, Self-Care Condition: Stable Instructions: Ovarian Cyst (ED) Additional Instructions: Your labs today are all normal. CT scan shows a probable ruptured ovarian cyst with some free fluid in the pelvis. This will be absorbed over the next few days and there should not be anything specific that you need to do. You can take Tylenol 1000 mg plus ibuprofen 400 mg up to 3 times a day as needed with food. I prescribed a few oxycodone if he needs something stronger over the next day or 2. Also prescribe some Zofran for nausea. You can eat or drink foot ever sounds good to you. If you feel you are having more severe pain, fevers, vomiting or other worsening, return to the ER. See your primary doctor for symptoms that persist beyond the next week or so. Prescriptions: No Action gabapentin 300 mg capsule 300 mg PO 3XD epinephrine 0.3 mg/0.3 mL auto-injector 0.3 mg IM PRN (Reason: allergies) quetiapine [Seroquel] 100 mg tablet 100 mg PO QHS Follow Up/Referrals: Provider,Not a Local [Primary Care Provider, Family Practice] Stand Alone Forms: [facility] [employer] Info Instructions
[2025-09-23 14:25] LABS: Hematocrit* 42.0 % (33.0-51.0); Hemoglobin* 13.9 gm/dL (12.0-16.0); Immature Granulocytes Abs Auto 0.01 K/uL (0.00-0.30); Immature Granulocytes Pct Auto 0.1 %; Lymphocytes Absolute Auto 1.71 K/uL (0.90-2.90); Mean Corpuscular HGB Conc 33 gm/dL (32-36); Mean Corpuscular Hemoglobin 29 pg (26-34); Mean Corpuscular Volume 89 fL (80-100); RDW Coefficient of Variation % 11.9 % (11.5-15.5); Red Blood Count* 4.72 m/uL (4.00-5.20); White Blood Count* 7.53 K/uL (4.50-11.00)
[2025-09-23 14:27] LABS: Slide Review Reflex No
[2025-09-23] MEDS: ONDANSETRON 2 MG/ML inj 4 MG IVP (14:28)
[2025-09-23 14:37] LABS: Chloride* 99 mmol/L (96-114); Potassium* 3.8 mmol/L (3.6-5.1); Sodium* 138 mmol/L (135-149)
[2025-09-23 14:40] LABS: Blood Urea Nitrogen* 7 mg/dL (5-24); Creatinine* 0.6 mg/dL (0.5-1.5); Estimated Glomerular Filt Rate 129 ml/min
[2025-09-23 14:41] LABS: Anion Gap 13 mEq/L (7-15); Calcium* 9.1 mg/dL (8.4-10.6); Carbon Dioxide* 26 mmol/L (20-32); Glucose* 98 mg/dL (60-115)
[2025-09-23 15:24] VITALS: BP 118/78; RESP 16; O2SAT 99
== END 2025-09-23 15:29 | disposition home or self-care (01) ==
PROVIDERS: Emergency Provider Emergency Medicine
DX: N83.201 Unspecified ovarian cyst, right side (principal)
CPT/HCPCS: 36415; 74177; 80048; 81001; 81025; 85025; 86140; 87086; 96361; 96374; 99284; 99285; J2405; J7030; Q9967